=== PATIENT | male | born 1945 | race Caucasian/White ===

== ENCOUNTER 2023-01-11 22:09 | Emergency (ER) | payer MEDICARE, SELFPAY ==
[2023-01-11] VITALS (12 sets, daily range): BP systolic 136–159; BP diastolic 61–80; PULSE 60–87; RESP 18–20; TEMP 36.9; O2SAT 93–100
--- NOTE | ~2023-01-11 | XR_ITS ---
Portable chest x-ray Comparison: 06/26/2017 Clinical History: Syncope Findings: There is probable COPD and/or other chronic interstitial disease. There is mild focal hazi ness the right lung base. Cardiomediastinal silhouette is stable. Bones and soft tissues are unremar kable. Impression: Probable COPD and/or other chronic interstitial disease. Focal haziness right lung base, nonspecific. Consider focal pneumonia. Reviewed, dictated and finalized at location M. Impression: Probable COPD and/or other chronic interstitial disease. Focal haziness right lung base, nonspecific. Consider focal pneumonia.
--- NOTE | ~2023-01-11 | CT_ITS ---
CT head without contrast Indication: Head injury Technique: Serial scans were obtained through the brain without the administration of contrast. Dose reduction technique was used on this scan by utilizing automated exposure control and iterative recon struction technique. The dose-length product (DLP) was 681.00 mGy-cm. Findings: There is no evidence of intracranial hemorrhage or acute infarct. There is a probable 1 cm meningioma along the right side of the superior falx cerebri.. The ventricles and subarachnoid space s are dilated, consistent with mild atrophy. There is hypodensity in the superior right cerebral rubén sphere, suggestive of vasogenic edema. There is no evidence of edema, mass effect or midline shift. The visualized paranasal sinuses and mastoid air cells are clear. Impression: 1 cm suspected meningioma along the superior right side of the falx cerebri. Associated presumed vasogenic edema in the superior right cerebral hemisphere. Pre and postcontrast M R should be considered to better exclude any other underlying mass lesion in this region. Reviewed, dictated and finalized at location M. Impression: 1 cm suspected meningioma along the superior right side of the falx cerebri. Associated presumed vasogenic edema in the superior right cerebral hemisphere. Pre and postcontrast MR should be considered to better exclude any other underl damien mass lesion in this region.
--- NOTE | ~2023-01-11 | CT_ITS ---
Noncontrast CT scan of the cervical spine Technique: Multiple contiguous axial [address] images of the cervical spine were obtained and rec onstructed in 2D sagittal and coronal planes on the acquisition scanner. Dose reduction technique was used on this scan by utilizing automated exposure control, adjustment of the mA and/or kV according to patient size. Clinical History: Pain Findings: No acute fracture identified. Minimal grade 1 anterolisthesis of C5 over C6 noted. There ar e scattered mild degenerative disc changes in the cervical spine. There is advanced left facet arthro arianne at C3-C4, with left neural foraminal narrowing at this level. There is severe left facet arthro arianne at C4-C5, with left neural foraminal narrowing at this level. There is severe left neural michael inal narrowing at C5-C6, with left neural foraminal narrowing at this level. No definite spinal canal stenosis. No prevertebral soft tissue swelling. Impression: No fracture. Minimal grade 1 anterolisthesis of C5 over C6. Degenerative spondylitic changes, as above. Reviewed, dictated and finalized at [facility]. Impression: No fracture. Minimal grade 1 anterolisthesis of C5 over C6. Degenerative spondylitic changes, as above.
--- NOTE | 2023-01-11 22:27 | ECG_ITS ---
Measurements Intervals [place] Rate: 63 P: 63 MN: 177 QRS: 55 QRSD: 116 T: 48 QT: 430 QTc: 443 Interpretive Statements SINUS RHYTHM POSSIBLE LATERAL MYOCARDIAL INFARCTION , PROBABLY OLD INFERIOR MYOCARDIAL INFARCTION , PROBABLY OLD ABNORMAL ECG NO PREVIOUS ECG AVAILABLE FOR COMPARISON Electronically Signed On 01-12-2023 16:47:29 CDT by Jonny Palacios M.D.
--- NOTE | 2023-01-11 22:41 | ED.FALL ---
HPI - Fall General Chief Complaint: Fall Stated Complaint: Fall History of Present Illness HPI Narrative: This is a 77-year-old male with past medical history of COPD, seizure disorder who is brought to the emergency department by EMS after a fall. The patient states he was in his usual state of health, when he fell and lost consciousness. He denies preceding symptoms including chest pain, palpitations or shortness of breath. He complains of some shortness of breath since the fall. He states he is fallen like this before. He states he struck the left side of his head and complains of mild pain. Related Data Home Medications Medication Instructions Recorded Confirmed aspirin 81 mg tablet,delayed 81 mg PO DAILY 01/30/20 07/28/22 release (Aspir-) metoprolol succinate 50 mg 50 mg PO DAILY 01/30/20 07/28/22 tablet,extended release 24 hr temazepam 15 mg capsule 30 mg PO ONCE 01/30/20 01/11/23 fluticasone fur. 100 mcg-umeclid 1 inh inhalation DAILY 01/11/23 62.5 mcg-vilant 25 mcg inhalat.powder (Trelegy Ellipta) levetiracetam 1,000 mg tablet 1,000 mg PO BID 01/11/23 Allergies Allergy/AdvReac Type Severity Reaction Status Date / Time No Known Drug Allergies Allergy Unknown Unknown Verified 01/11/23 22:23 Review of Systems Review of Systems: CONSTITUTIONAL: Denies fever, chills, or sweats. EYES: Denies visual changes, redness, or discharge. ENT: Denies rhinorrhea, congestion, sore throat, or otalgia. CARDIOVASCULAR: Denies chest pain, palpitations, or edema. RESPIRATORY: Chronic shortness of breath, chronic cough somewhat worse than usual GASTROINTESTINAL: Denies abdominal pain, nausea, vomiting, or diarrhea. GENITOURINARY: Denies dysuria or hematuria. SKIN: Denies rash or itching. MUSCULOSKELETAL: Denies back pain, joint pain, or myalgia. NEUROLOGIC: Mild headache, loss of consciousness denies numbness, dizziness, or weakness. PSYCHIATRIC: Denies anxiety or depression. [facility] Past Medical History Medical History Cancer of lung Chronic respiratory failure COPD (chronic obstructive pulmonary disease) Dependence on continuous supplemental oxygen Metastasis to brain Myocardial infarction Shortness of Breath Family History Family History Father , age 73 History of throat cancer Myocardial infarction Mother Hypertension Coronary artery disease Mother Hypertension Family history of coronary artery disease Father Acute myocardial infarction, Onset Age: 73 Other Family history of throat cancer Social History Social History Smoking packs per day: 3 Smoking cigarettes per day: 60.0 Years smoked: 50 Smoking pack-years: 150.00 Smoking status: Former smoker Tobacco type: cigarettes Second hand tobacco smoke exposure: Yes Smoking end date: 10/05/06 Alcohol intake: current Drinks per week: 28 Exam Narrative: GENERAL: Well-developed, well-nourished, and in no acute distress. HEAD: Normocephalic, an approximate 2 cm skin tear with underlying hematomas noted over the left anglican EYES: PERRLA and EOMI. ENT: Nares clear, no rhinorrhea or epistaxis. Mucous membranes moist. Oropharynx without tonsillar hypertrophy exudate or other lesions. NECK: Supple. No adenopathy or masses. No carotid bruits or JVD. No midline spine tenderness to palpation, no step-off or crepitus CHEST: Rales noted in the right posterior inferior lung field. Otherwise clear to auscultation bilaterally.. No respiratory distress. No wheezes or rhonchi HEART: Regular rate and rhythm. No murmur heard. Normal peripheral pulses. ABDOMEN: Soft, nontender, nondistended, normal active bowel sounds. BACK: No midline spine tenderness to palpation, no step-off or crepitus EXTREMITIES: The left foreleg in a brace. Normal range of mot
[2023-01-11] MEDS: TETANUS,DIPHTHERIA,AC PERTUSSIS ADULT 0.5 ML (ADACEL) IM (22:53)
[2023-01-11 23:07] LABS: Basophils Absolute Auto 0.02 K/mm3 (0.00-0.10); Basophils Percent Auto 0.1 % (0.0-1.0); Eosinophils Absolute Auto 0.05 K/mm3 (0.02-0.50); Eosinophils Percent Auto 0.4 % (1.0-6.0); Hematocrit 33.2 % (37.0-46.0); Hemoglobin 10.9 g/dL (12.4-15.3); Immature Granulocyte Absolute 0.07 K/mm3 (0.00-0.00); Immature Granulocyte Percent A 0.5 % (0.0-0.0); Lymphocytes Percent Auto 9.3 % (18.0-42.0); Mean Corpuscular HGB Conc 32.8 g/dL (32.0-36.0); Mean Corpuscular Hemoglobin 30.6 pg (27.0-31.0); Mean Corpuscular Volume 93.3 fL (78.0-102.0); Mean Platelet Volume 9.7 fl (8.7-11.0); Monocytes Absolute Auto 0.72 K/mm3 (0.10-0.90); Monocytes Percent Auto 5.1 % (2.0-11.0); Neutrophils Absolute Auto 11.9 K/mm3 (1.7-7.2); Neutrophils Percent Auto 84.6 % (50.0-70.0); Platelet Count Result 403 K/mm3 (150-420); Red Blood Count 3.56 M/mm3 (4.70-6.10); Red Cell Distribution Width 13.2 % (11.6-14.4)
[2023-01-11 23:18] LABS: Prothrombin Time 10.8 Seconds (9.50-12.10)
[2023-01-11 23:24] LABS: Alanine Aminotransferase 25 U/L (16-63); Albumin Level 3.2 g/dL (3.4-5.0); Alkaline Phosphatase 83 U/L (46-116); Anion Gap 5 mmol/L (8-16); Aspartate Amino Transferase 19 U/L (15-37); Bilirubin,Total 0.3 mg/dL (0.00-1.00); Blood Urea Nitrogen 10 mg/dL (7-18); Carbon Dioxide 34 mmol/L (21-32); Chloride 99 mmol/L (98-108); Estimated CRCL calculation 65 ml/min; Estimated Glomerular Filt Rate > 60; Glucose 88 mg/dL (70-99); Osmolality Calculated 284 mOsm/kg (285-295); Potassium 3.7 mmol/L (3.5-5.1); Sodium 138 mmol/L (136-145); Total Protein 7.1 g/dL (6.4-8.2)
[2023-01-11 23:28] LABS: Creatine Kinase 36 U/L (39-308)
--- NOTE | 2023-01-11 23:30 | PC.NURSE ---
Dr Bravo spoke c pt and his daughter about POC and need for transfer to [facility], Pt agreeable to transfer.
[2023-01-11] MEDS: AZITHROMYCIN 250 MG TABLET 500 MG PO (23:50)
[2023-01-12 00:03] VITALS: BP 175/68; PULSE 61; O2SAT 100
[2023-01-12 00:17] VITALS: BP 160/71; PULSE 60; RESP 18; O2SAT 100
[2023-01-12 00:31] VITALS: BP 154/70; PULSE 58; O2SAT 100
[2023-01-12 01:01] VITALS: BP 168/67; PULSE 66; RESP 18; O2SAT 95
[2023-01-12 01:30] VITALS: PULSE 63; O2SAT 100
--- NOTE | 2023-01-12 01:42 | PC.NURSE ---
Pt resting, awaiting call back for bed assignment at [facility]. VSS, Monitor continues to show SR, call khoury at pt side.
[2023-01-12 02:10] VITALS: BP 133/51; PULSE 63; RESP 20; TEMP 36.6; O2SAT 98
[2023-01-12 02:15] LABS: Appearance Urine Clear (Clear); Bilirubin Urine Negative (Negative); Blood Urine Negative (Negative); Color Urine Light Yellow (Yellow); Glucose Urine UA Negative (Negative); Ketones Urine Negative (Negative); Leukocyte Esterase Ur Negative LEU/UL (Negative); Nitrate Urine Negative (Negative); Protein Urine Negative (Negative); Urobilinogen Urine 0.2 mg/dL (0.2-1.0); pH Urine 6.5 (5.0-8.0)
[2023-01-12 02:23] LABS: Troponin I 315.6 ng/L (0.00-60.4)
[2023-01-12 02:24] LABS: Add Urine Microscopic? NO
--- NOTE | 2023-01-12 02:35 | PC.NURSE ---
[facility] here for pt transfer, report given, pt moved to EMS cot s difficulty.
== END 2023-01-12 02:42 | disposition short-term general hospital (02) ==
PROVIDERS: Emergency Provider Preventive Medicine Aerospace Medicine; PCP Family Medicine
DX: S01.81XA Laceration without foreign body of other part of head, initial encounter (principal); R55 Syncope and collapse; J18.9 Pneumonia, unspecified organism; R79.89 Other specified abnormal findings of blood chemistry; R06.02 Shortness of breath; J44.9 Chronic obstructive pulmonary disease, unspecified; I25.2 Old myocardial infarction; Z99.81 Dependence on supplemental oxygen; Z87.891 Personal history of nicotine dependence; Z85.118 Personal history of other malignant neoplasm of bronchus and lung; Z23 Encounter for immunization; W19.XXXA Unspecified fall, initial encounter
CPT/HCPCS: 36415; 70450; 71045; 72125; 80053; 81003; 82550; 83735; 84484; 85025; 85610; 90471; 90715; 93005; 96365; 99285; A9270; J0696

== ENCOUNTER 2023-01-12 04:51 | Inpatient (IN) | payer MEDICARE, SELFPAY ==
[2023-01-12] VITALS (18 sets, daily range): BP systolic 149–180; BP diastolic 62–102; PULSE 56–131; RESP 18–28; TEMP 36.3–37; O2SAT 98–100; BMI 18.6
--- NOTE | 2023-01-12 | ECHO_ITS ---
Patient Info Name: Jabier Chisholm Age: 77 years : 1945 Gender: Male Ht: 69 in Wt: 126 lbs BSA: 1.66 m2 HR: 73 bpm BP: 178 / 102 mmHg Heart Rhythm: Sinus Rhythm Technical Quality: Fair Exam Date: 01/12/2023 10:27 AM Exam Location: [facility] Pulmonary Patient Status: Inpatient Admit Date: 01/12/2023 Staff Ordering Physician: Lesa Edwards MD Hand Shoes Sewer: Elayne Cline RDCS Attending Provider: Lesa Edwards MD Referring Physician: Jerry PORTILLO; Exam Type: CA echo doppler color flow Study Info Indications - chf Complete two-dimensional, color flow and Doppler transthoracic echocardiogram is performed. Summary 1. Complete two-dimensional, color flow and Doppler transthoracic echocardiogram is performed. 2. Left ventricular chamber dimension is normal. 3. Left ventricular systolic function is normal, estimated at 50-55%. 4. There is no increased left ventricular wall thickness. 5. The left ventricular diastolic function is grade I diastolic dysfunction. 6. There is moderate to severe aortic valve stenosis with a peak velocity of 352 cm/s, mean gradient of 21 mmHg, and aortic valve area of 0.9 cm2. 7. There is mild tricuspid valve regurgitation. 8. Mild pulmonary hypertension, estimated pulmonary arterial systolic pressure is 35 mmHg. Left Ventricle Left ventricular chamber dimension is normal. Left ventricular systolic function is normal, estimated at 50-55%. There is no increased left ventricular wall thickness. The left ventricular diastolic function is grade I diastolic dysfunction. Right Ventricle Right ventricular chamber dimension is normal. Right ventricular systolic function is normal. Left Atria Left atrial chamber dimension is normal. Right Atria Right atrial chamber dimension is normal. Aortic Valve The aortic valve is not well visualized. There is moderate to severe aortic valve stenosis with a peak velocity of 352 cm/s, mean gradient of 21 mmHg, and aortic valve area of 0.9 cm2. There is mild aortic valve regurgitation. Pulmonic Valve The pulmonic valve is not well visualized. Mitral Valve The mitral valve has thickened leaflets. There is trace mitral valve regurgitation. The mitral valve annulus is mildly calcified. Tricuspid Valve The tricuspid valve leaflets are normal. There is mild tricuspid valve regurgitation. Mild pulmonary hypertension, estimated pulmonary arterial systolic pressure is 35 mmHg. Pericardium/Pleural The pericardium appears normal. There is small pericardial effusion. Inferior Vena Cava Normal inferior vena cava with >50% collapse upon inspiration consistent with elevated right atrial pressure, 5 mmHg. Aorta The aortic root size at the sinus of Valsalva is normal. There is moderate-severe aortic atherosclerosis. Left Ventricular Outflow Tract Name Value Normal LVOT 2D LVOT Diameter 2.0 cm LVOT Doppler LVOT Peak Gradient 3 mmHg LVOT Mean Gradient 1 mmHg LVOT VTI 19 cm LVOT VTI/AV VTI Ratio 0.3
--- NOTE | ~2023-01-12 | US_ITS ---
EXAMINATION: US venous doppler [facility] DATE: 01/14/2023 22:09 INDICATION: new onset AFib, hx of cancer . TECHNIQUE: Grayscale images without and with compression and Doppler images of the bilateral lower ex tremity veins were obtained. COMPARISON: None FINDINGS: The right common femoral vein, profunda (deep) femoral vein, femoral vein, popliteal vein, peroneal v ein, posterior tibial veins, gastrocnemius vein, and greater saphenous vein are patent. The left common femoral vein, profunda (deep) femoral vein, femoral vein, popliteal vein, peroneal v ein, posterior tibial veins, gastrocnemius vein, and greater saphenous vein are patent. IMPRESSION: 1. Patent bilateral lower extremity veins. No evidence of deep venous thrombosis. Reviewed, dictated and finalized at location K. IMPRESSION: 1. Patent bilateral lower extremity veins. No evidence of deep venous thrombos is.
--- NOTE | ~2023-01-12 | XR_ITS ---
XR shoulder LT min 2V 01/12/2023 14:43 Indication: Left shoulder pain Procedure: 2 views left shoulder Comparison: No prior studies for comparison. Findings: There is moderate polyarticular osteoarthritis. There is loose body adjacent to the acromio clavicular joint. No significant soft tissue abnormality. No foreign body. Impression: 1: Moderate polyarticular osteoarthritis. Reviewed, dictated and finalized at location B. Impression: 1: Moderate polyarticular osteoarthritis.
--- NOTE | ~2023-01-12 | CT_ITS ---
Clinical Indication: Atrial fibrillation, history of lung cancer CT Scan of the Chest with Contrast: Technique: Contiguous sections were acquired throughout the chest after intravenous administration of 100 cc of Omnipaque 350. Dose reduction technique was used on this scan by utilizing automated expos ure control and iterative reconstruction technique. The dose-length product (DLP) was 203.60 mGy-cm. COMPARISON: 04/26/2019 Findings: There is no evidence of any significant mediastinal, hilar or axillary lymphadenopathy. There is no f illing defect in the pulmonary arterial tree to suggest pulmonary embolus. There is no evidence of ao rtic dissection or aneurysm. There are atherosclerotic calcifications of the aorta. Coronary artery c alcifications are present. Small right pleural effusion present. No left pleural effusion. No pericardial effusion. There is mild to moderate emphysema. There is mild right basilar atelectatic change. There is chronic atelectasis and/or scarring at the left lung base, similar to prior exam.. Images through the upper abdomen reveal no abnormalities. Impression: No evidence of pulmonary embolus, aortic dissection, or aortic aneurysm. Mild to moderate emphysema. Small right pleural effusion with mild right basilar atelectatic change. Chronic atelectasis and/or postradiation change or scarring at the left lung base, essentially unchan ged since 2019. Reviewed, dictated and finalized at [facility]. Impression: No evidence of pulmonary embolus, aortic dissection, or aortic aneurysm. Mild to moderate emphysema. Small right pleural effusion with mild right basilar atelectatic change. Chronic atelectasis and/or postradiation change or scarring at the left lung ba se, essentially unchanged since 2019.
--- NOTE | ~2023-01-12 | MR_ITS ---
EXAMINATION: MR brain/brain stem wo/w con DATE: 01/12/2023 14:40 INDICATION: Brain mass. TECHNIQUE: Magnetic resonance imaging (MRI) of the brain and brainstem was performed without and with 10 mL MultiHance intravenous contrast. COMPARISON: Head CT 01/11/2023, brain MRI 04/26/2019 FINDINGS: There is a 10 mm enhancing mass in medial right parietal lobe containing foci of low signal on T2*-weighted imaging that may be calcifications and/or blood products. There is increased T2-weig hted signal intensity in the surrounding white matter. There is an old infarct involving the right ba manish ganglia. There are scattered areas of nonspecific increased T2-weighted signal intensity in the c erebral white matter and tyler. There is no acute ischemic infarct. The ventricles are normal in size. The paranasal sinuses are clear. The orbits are normal. There are bilateral mastoid effusions. IMPRESSION: 1. 10 mm enhancing mass in medial right parietal lobe, stable from 04/26/2019, consistent with metasta tic disease. Increased T2-weighted signal intensity in the surrounding white matter is likely seconda ry to vasogenic edema and/or changes of radiation therapy. 2. Old infarct in the right basal ganglia. 3. Stable moderate nonspecific cerebral white matter disease and pontine disease, which likely repres ents chronic small vessel ischemic disease. Reviewed, dictated and finalized at location A. IMPRESSION: 1. 10 mm enhancing mass in medial right parietal lobe, stable from 04/26/2019, c onsistent with metastatic disease. Increased T2-weighted signal intensity in th e surrounding white matter is likely secondary to vasogenic edema and/or change s of radiation therapy. 2. Old infarct in the right basal ganglia. 3. Stable moderate nonspecific cerebral white matter disease and pontine diseas e, which likely represents chronic small vessel ischemic disease.
--- NOTE | 2023-01-12 03:58 | ADMGEN ---
This patient, Jabier Chisholm Sr., was admitted to IMU Room 212-01. Patient/family oriented to hospital policies and general routines including ID bracelet, bed and alarms, visiting hours, pain management, procedures, bathroom and other care routines, personal items, smoking policy, room service/diet, and visiting hours. Information on how to activate the Rapid Response Team has been discussed. Patient/Family are encouraged to report perceived risks to care and to ask questions if they do not understand what they are told or what they should do.
[2023-01-12 05:32] LABS: INR 1.1; Prothrombin Time 13.8 Seconds (11.1-14.7)
[2023-01-12 05:33] LABS: Partial Thromboplastin Time 30.9 SECONDS (22.3-36.8)
[2023-01-12 05:45] LABS: Phosphorus 3.6 mg/dL (2.5-4.5)
[2023-01-12 05:49] LABS: Troponin I 0.227 ng/mL (0.000-0.034)
[2023-01-12 07:54] LABS: Troponin I 0.228 ng/mL (0.000-0.034)
[2023-01-12] MEDS: levETIRAcetam 500 MG TABLET 1000 MG PO ×2 (08:58→21:23)
[2023-01-12] MEDS: ENOXAPARIN 40 MG/0.4 ML SYRINGE SUB-Q (08:59)
[2023-01-12] MEDS: FLUTICASONE/UMECLIDIN/VILANTER 100-62.5-25 MCG ELLIPTA 1 PUFF INHALATION (09:28)
--- NOTE | 2023-01-12 09:36 | PM.CNCAR ---
Assessment and Plan Assessment and plan (1) Elevated troponin: Code(s): R77.8 - Other specified abnormalities of plasma proteins Status: Acute Plan This is a 77-year-old man with modest flat elevation of troponin without any other clinical evidence of an acute coronary syndrome. Not clear as to why the troponin levels have been sampled in this setting. In any event he denies any previous cardiac history. He is obviously a considerably ill gentleman with end-stage COPD which certainly could explain elevation of troponin to a modest degree. He also has the above described history of significant malignancy and because of all this is DNR. In this setting I do not believe there is good reason to keep him hospitalized here at [facility] or anywhere else given his comorbidities and DNR status. Initiating ischemia workup here is not necessary in this setting. One would question the safety or reasonable miss of this patient continuing to live alone if he is falling frequently. I did not get into a conversation with this as part of his cardiology evaluation. Merritt Mckeon MD [facility] History of Present Illness History of Present Illness Consult date/time: 01/12/23 09:36 Reason For Visit: elevated troponin,acute chf Narrative: This is a 77-year-old man I am seeing this morning at the request of the hospitalist because of elevation of his troponin level. The patient is unknown to me prior to this consultation and he says he is not known to have any cardiac problems prior to this. He has a rather ill gentleman with chronic end-stage COPD as well as a prior history of lung cancer. The details of this are unknown to me he received his care at [facility] in [place]. He was brought to the emergency room yesterday up in [place] because of an episode of apparent loss of consciousness and falling in his home. The patient states that he does fall with some regularity usually it is because he trips on things. Earlier in the week he fell because he tripped on his cord for the home oxygen that he uses. He yesterday apparently had a fall that he cannot recall. A neighbor who checks on him found him on the floor in his residence apparently not responsive and he was brought to the emergency department for further evaluation. He says the next thing he remembers is waking up in the emergency room. According to the notes his cardiac rhythm and hemodynamically is vital signs were stable and unremarkable. His electrocardiogram does show some small inferior Q-waves and his troponin levels were found to be elevated. Here at [facility] they are 0.2 and flat. There is no ST segment deviation to suggest an acute injury. He does not remember having any chest pain prior to this yesterday and he has not had any chest pain at this time. The patient is would like to be discharged back to home if possible. His principal health problems are severe chronic lung disease there are notes from his mobile sales technician here in this chart which indicate he has end-stage lung disease and is on home oxygen 5 liters/minute to maintain good saturation. He has a history of smoking 150 pack years prior to this. 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 He states all of these were treated with radiation at [facility] in [place]. He never had any surgical procedures to treat his cancer. He has not seen an oncologist there for follow-up in some time. His chest x-ray does not show any significant masses his CT of his head does not show any lesion suspicious for cancer he does have a small meningioma that is described. There is no mass effect the certainly no hemorrhage. Because of his troponin elevation we have been asked to see him in consultation. His orders presumably because of his malignancy I include DNR status. His cardiac rhythm since being transferred here at [facility] yesterday and admitt
[2023-01-12] MEDS: predniSONE 5 MG TABLET PO (13:04)
--- NOTE | 2023-01-12 14:31 | PC.NURSE ---
1411- to XRAY dept and MRI for procedure via bed accompanied by staff
--- NOTE | 2023-01-12 15:05 | PC.NURSE ---
returned to room MRI and left shoulder x-ray completed
--- NOTE | 2023-01-12 15:11 | PM.IMHP ---
H&P: HPI History of Present Illness Date/Time: 01/12/23 15:11 Chief Complaint: fall Narrative: this is a [age]-year-old male with past medical history of COPD, seizure disorder history of lung cancer metastatic to the brain treated chronic respiratory failure on home oxygen lives alone presents with fall and states she does not know how he was on the floor and his resume that he loss consciousness. He denies any preceding symptoms including chest pain palpitation or shortness of breath. He has chronic shortness of breath. He has had falls like this in the past. He was seen in the ER and further workup revealed CT head with no acute intracranial finding or fracture. There is chronic ischemic change in the right frontoparietal white matter CT cervical spine was negative for any fracture abnormality. Troponin came back elevated WBC count was mildly elevated at 14 a he was transferred for cardiac evaluation. Cardiology has evaluated this patient prior to my evaluation. Cardiac troponin has been flat since the admission. He is wanting to go home with no further testing 1 and. This was discussed with the daughter over the phone and and my information findings and evaluation. Review of Systems Review of Systems: - CONSTITUTIONAL: Denies weight loss, fever and chills. - HEENT: Denies changes in vision and hearing - RESPIRATORY: Reports chronic SOB and cough. - CV: Denies palpitations and CP. - GI: Denies abdominal pain, nausea, vomiting and diarrhea. - : Denies dysuria and urinary frequency. - MSK: Denies myalgia and joint pain. - SKIN: Denies rash and pruritus. - NEUROLOGICAL: Denies headache. reports fall and syncopal episode - PSYCHIATRIC: Denies recent changes in mood. Denies anxiety and depression. [facility] Past Medical History Medical History Cancer of lung Chronic respiratory failure COPD (chronic obstructive pulmonary disease) Dependence on continuous supplemental oxygen Metastasis to brain Myocardial infarction Shortness of Breath Family History Family History Father , age 73 History of throat cancer Myocardial infarction Mother Hypertension Coronary artery disease Mother Hypertension Family history of coronary artery disease Father Acute myocardial infarction, Onset Age: 73 Other Family history of throat cancer Social History Social History Smoking packs per day: 3 Smoking cigarettes per day: 60.0 Years smoked: 50 Smoking pack-years: 150.00 Smoking status: Former smoker Tobacco type: cigarettes Second hand tobacco smoke exposure: Yes Smoking end date: 10/05/06 Alcohol intake: current Drinks per week: 28 Substance use: never Last use: 4 beers per day Lack of Transportation: No Lack of Food: Never True Current Housing: I Have Housing Concerned About Future Housing: No Difficulty Paying Gas/Electric Bills: No Difficulty Paying for Meds: No Currently Unemployed: No Education: Decline to Answer Difficulty w/ Childcare or Family Care: No Spiritual care concerns: No Meds Home Medications and Allergies Home Medications Medication Instructions Recorded Confirmed Type temazepam 15 mg capsule 30 mg PO HS 01/30/20 01/12/23 History albuterol sulfate 90 mcg/actuation 1 - 2 puff inhalation Q4-6H PRN 07/28/22 01/12/23 Rx aerosol inhaler (ProAir HFA) shortness of breath or wheezing 1 month #8 grams fluticasone fur. 100 mcg-umeclid 1 inh inhalation DAILY 01/11/23 01/12/23 History 62.5 mcg-vilant 25 mcg inhalat.powder (Trelegy Ellipta) levetiracetam 1,000 mg tablet 1,000 mg PO BID 01/11/23 01/12/23 History prednisone 5 mg tablet 5 mg PO DAILY 01/12/23 01/12/23 History Allergies Allergy/AdvReac Type Severity Reaction Status Date /
[2023-01-12] MEDS: DOCUSATE SODIUM 100 MG CAPSULE PO (16:48)
[2023-01-12] MEDS: ACETAMINOPHEN 325 MG TABLET 650 MG PO (16:49)
--- NOTE | 2023-01-12 17:08 | ECG_ITS ---
Measurements Intervals [place] Rate: 129 P: 76 PA: 165 QRS: 69 QRSD: 112 T: 72 QT: 304 QTc: 445 Interpretive Statements SINUS TACHYCARDIA BASELINE ARTIFACT PROBABLE INFERIOR MYOCARDIAL INFARCTION ], OF INDETERMINATE AGE ST DEPRESSION, CONSIDER SUBENDOCARDIAL INJURY ABNORMAL ECG COMPARED TO ECG 01/11/2023 23:03:18 SINUS TACHYCARDIA NOW PRESENT AND ST CHANGES MORE PROMINENT Electronically Signed On 01-13-2023 15:57:14 CDT by Jonny Palacios M.D.
[2023-01-12] MEDS: METOPROLOL TARTRATE 25 MG TABLET PO (18:03)
[2023-01-12] MEDS: HYDROcodone/acetaminophen (*CRX) 5-325 MG TABLET 1 TAB PO (18:03)
[2023-01-12] MEDS: TEMAZEPAM (*CRX) 15 MG CAPSULE 30 MG PO (21:23)
[2023-01-13] VITALS (30 sets, daily range): BP systolic 92–153; BP diastolic 52–67; PULSE 57–90; RESP 16–22; TEMP 36.2–36.7; O2SAT 99–100
[2023-01-13] MEDS: LEVALBUTEROL NEB 1.25 MG/3 ML 0.63 MG INHALATION ×4 (02:25→20:20)
[2023-01-13] MEDS: IPRATROPIUM BR 0.02% INH SOLN 0.5 MG/2.5 ML VIAL INHALATION ×4 (02:25→20:47)
[2023-01-13 04:43] LABS: Basophils Percent Auto 0.1 % (0.2-1.2); Eosinophils Absolute Auto 0.1 K/mm3 (0-0.3); Eosinophils Percent Auto 0.3 % (0-4.4); Hematocrit 35.2 % (42.0-52.0); Hemoglobin 11.2 g/dL (14.0-18.0); Immature Granulocyte Absolute 0.07 K/mm3 (0.00-0.031); Immature Granulocyte Percent A 0.4 % (0-0.5); Lymphocytes Absolute Auto 1.47 K/mm3 (0.9-3.2); Lymphocytes Percent Auto 7.5 % (18.3-44.2); Mean Corpuscular HGB Conc 31.8 g/dl (32-36); Mean Corpuscular Hemoglobin 30.7 pg (26-34); Mean Corpuscular Volume 96.4 fl (80-100); Mean Platelet Volume 10.1 fl (7.4-10.4); Monocytes Absolute Auto 0.9 K/mm3 (0.1-0.6); Monocytes Percent Auto 4.8 % (2.6-8.5); Neutrophils Absolute Auto 16.9 K/mm3 (1.3-6.7); Neutrophils Percent Auto 86.9 % (45.5-73.1); Platelet Count Result 376 k/mm3 (150-375); Red Blood Count 3.65 M/mm3 (4.6-6.20); Red Cell Distribution Width 13.5 % (11.5-14.5); White Blood Count 19.5 K/mm3 (4.5-10.0)
[2023-01-13 04:51] LABS: Anion Gap 6 mmol/L (8-16); Blood Urea Nitrogen 12 mg/dL (9-20); Carbon Dioxide 30 mmol/L (22-30); Chloride 98 mmol/L (98-107); Estimated CRCL calculation 77 ml/min; Estimated Glomerular Filt Rate > 60; Glucose 100 mg/dL (65-110); Magnesium 2.1 mg/dL (1.6-2.3); Sodium 134 mmol/L (137-145)
--- NOTE | 2023-01-13 06:56 | P.CDI_ITS ---
CDI Query Clarified Diagnosis Clarified Diagnosis: BMI 18.6 Nutritional Diagnostic Statement Severe Protein Calorie Malnutrition related to chronic cancer as evidence by weight loss -23%/ 1 year; intake < 75% needs > 1 month ; severe muscle wasting a nd fat loss Please refer to Comprehensive Nutrition Assessment for more information. Please clarify severity of protein calorie malnutrition if known: * Mild * Moderate * Severe * Other/ Unspecified <Misty Granados RN - Last Filed: 01/13/23 07:03> Provider Comments Severe protein calorie malnutrition <Dwayne Rodríguez MD - Last Filed: 01/13/23 15:39>
[2023-01-13] MEDS: FLUTICASONE/UMECLIDIN/VILANTER 100-62.5-25 MCG ELLIPTA 1 PUFF INHALATION (08:35)
[2023-01-13] MEDS: levETIRAcetam 500 MG TABLET 1000 MG PO (08:53)
[2023-01-13] MEDS: METOPROLOL TARTRATE 25 MG TABLET PO (08:54)
[2023-01-13] MEDS: predniSONE 5 MG TABLET PO (08:54)
[2023-01-13] MEDS: ENOXAPARIN 40 MG/0.4 ML SYRINGE SUB-Q (08:54)
[2023-01-13] MEDS: DOCUSATE SODIUM 100 MG CAPSULE PO ×2 (08:54→16:54)
[2023-01-13] MEDS: HYDROcodone/acetaminophen (*CRX) 5-325 MG TABLET 1 TAB PO (08:56)
--- NOTE | 2023-01-13 10:25 | WPDNEURCNPN ---
Assessment and Plan Assessment and plan (1) Metastatic cancer to brain: Code(s): C79.31 - Secondary malignant neoplasm of brain Status: Acute (2) Seizure: Code(s): R56.9 - Unspecified convulsions Status: Acute (3) Cancer of lung: Qualifiers: Laterality: right Lung location: hilum of lung Qualified Code(s): C34.01 - Malignant neoplasm of right main bronchus Code(s): C34.90 - Malignant neoplasm of unspecified part of unspecified bronchus or lung Status: Acute (4) COPD (chronic obstructive pulmonary disease): Qualifiers: COPD type: unspecified COPD Qualified Code(s): J44.9 - Chronic obstructive pulmonary disease, unspecified Code(s): J44.9 - Chronic obstructive pulmonary disease, unspecified Status: Acute Plan Jabier Chisholm Sr. is a 77 year old male with a history of metastatic lung cancer (brain mets), COPD, seizures, presenting due to fall. Etiology is unclear as fall was unwitnessed, but patient did have loss of consciousness. Concern for possible breakthrough seizure. MRI brain showed known metastatic disease, which is stable from prior imaging in 2019. - Increase Keppra to 1500mg BID - No driving until seizure free for 6 months Consult date: 01/13/23 Reason for consult: Fall, abnormal imaging findings HPI: Jabier Chisholm Sr. is a 77 year old male with a history of metastatic lung cancer (brain mets), COPD, seizure, presenting due to fall. Patient lives alone and reports that he did not know how he ended up on the floor. He did lose consciousness, but does not remember the preceding events. Patient does have a history of falls, but typically will trip over something which results in him falling. When evaluated in [place] ED, his CT head did not show any acute abnormalities but there was a mass noted in the right frontal region. His labs were significant for mild elevation of troponin, for which Cardiology was consulted. Patient is followed at [facility] for oncology care. The MRI brain done during this admission showed 10mm enhancing mass in the medial R parietal lobe, stable from April 2019, consistent with metastatic disease with surrounding white matter changes, as well as old infarct in the right basal ganglia. He takes prednisone 5mg daily, presumable for vasogenic edema. For his history of seizures, patient is currently on Keppra 1000mg BID. Patient reports good compliance with Keppra. He has only had one seizure in his lifetime, that happened years ago. He described it as left hemibody stiffening. Review of Systems Constitutional: Constitutional: Reports no additional constitutional complaints Eyes: Eyes: Reports no additional eye complaints ENT: Reports system reviewed and no additional complaints, except as documented Cardiovascular: Cardiovascular: Reports no additional cardiovascular complaints Respiratory: Respiratory: Reports no additional respiratory complaints Gastrointestinal: Gastrointestinal: Reports no additional gastrointestinal complaints Genitourinary: Genitourinary: Reports no additional male genitourinary complaints Musculoskeletal: Musculoskeletal: Reports no additional musculoskeletal complaints Integumentary/Breasts: Comments: bruising Neurologic: Reports as per HPI Psychiatric: Psychiatric: Reports no additional psychiatric complaints PMFSH Past Medical History Medical History Cancer of lung Chronic respiratory failure COPD (chronic obstructive pulmonary disease) Dependence on continuous supplemental oxygen Metastasis to brain Myocardial infarction Shortness of Breath Family History Family History Father , age 73 History of throat cancer Myocardial infarction Mother Hypertension Coronary artery disease Mother Hypertension Family history of coronary artery disease Father D
--- NOTE | 2023-01-13 13:36 | WPDNEUROLOGY ---
Neurology EEG Report General Information Date of Study: 01/12/23 TEST Routine EEG DIAGNOSIS New onset seizure CONDITION OF RECORDING Awake, drowsy EEG NUMBER [id number] CLINICAL HISTORY Patient has a history of lung cancer with brain metastasis. He was found unresponsive at home yesterday. He has a history of one prior seizure. EEG DESCRIPTION During the awake state with eyes closed the background consists of 8-9 Hz posterior dominant rhythm which attenuates appropriately with eye opening. The recording is continuous. There is a well developed anterior-posterior gradient. No significant asymmetries of background activities are noted. With drowsiness there is waxing and waning of the dominant rhythm with eventual replacement by a mixture of beta, alpha, and theta activity. Patient did not enter stage II sleep. Arousal is unremarkable. There are no epileptiform discharges or seizures during this recording. Hyperventilation and photic stimulation were not performed. IMPRESSION This is a normal routine EEG recorded in awake and drowsy states. There are no electrographic seizures identified, nor are there any epileptiform discharges. Please note that a normal EEG cannot exclude a seizure disorder. Clinical correlation is recommended.
--- NOTE | 2023-01-13 15:32 | PM.IMPN ---
Progress Note: A&P Assessment and Plan (1) Head injury due to trauma: Code(s): S09.90XA - Unspecified injury of head, initial encounter Status: Inactive (2) Elevated troponin: Code(s): R77.8 - Other specified abnormalities of plasma proteins Status: Inactive (3) Syncope: Code(s): R55 - Syncope and collapse Status: Inactive (4) Chronic respiratory failure: Qualifiers: Respiratory failure complication: unspecified whether with hypoxia or hypercapnia Qualified Code(s): J96.10 - Chronic respiratory failure, unspecified whether with hypoxia or hypercapnia Code(s): J96.10 - Chronic respiratory failure, unspecified whether with hypoxia or hypercapnia Status: Acute (5) Dependence on continuous supplemental oxygen: Code(s): Z99.81 - Dependence on supplemental oxygen Status: Acute (6) Cancer of lung: Qualifiers: Laterality: right Lung location: hilum of lung Qualified Code(s): C34.01 - Malignant neoplasm of right main bronchus Code(s): C34.90 - Malignant neoplasm of unspecified part of unspecified bronchus or lung Status: Acute (7) COPD (chronic obstructive pulmonary disease): Qualifiers: COPD type: unspecified COPD Qualified Code(s): J44.9 - Chronic obstructive pulmonary disease, unspecified Code(s): J44.9 - Chronic obstructive pulmonary disease, unspecified Status: Acute Plan recurrent fall Syncopal episode Abnormal CT head with vasogenic edema right cerebral hemisphere. MRI brain revealed 10 mm enhancing mass in the medial right parietal lobe which is stable from April 2019 consistent with metastatic disease with surrounding white matter changes as well as ordered far the right basal ganglia. Neurology consulted. Suggested Keppra increased to 1500 mg b.i.d. EEG with no active seizures Shoulder pain left side x-ray with polyarticular osteoarthritis Elevated troponin: Flat trajectory. No further workup planned by playground equipment erector. Get an echo due to syncopal episode Severe COPD Chronic respiratory failure On home oxygen Pneumonia right lung base with leukocytosis worsening will start ceftriaxone azithromycin also has underlying COPD and/or chronic interstitial lung disease seizure disorder Generalized weakness: PT OT evaluated. Need rehabilitation however patient refuses to go. Patient lives alone by himself DVT prophylaxis : Lovenox Do not resuscitate Subjective Date/time seen: 01/13/23 15:32 Interval history: Feeling better. Work with therapy. Still has some cough which is more chronic. Discussed with neurologist. Review of Systems Review of Systems: All systems reviewed & are unremarkable except as noted in HPI and below Exam Narrative: GENERAL: Thin built, and in no acute distress. on cooperative HEAD: Normocephalic, an approximate 2 cm skin tear with underlying hematomas noted over the left jewish EYES: PERRLA and EOMI. ENT: Nares clear, no rhinorrhea or epistaxis.? NECK: Supple.? CHEST: coarse breath sound.? No respiratory distress. HEART: Regular rate and rhythm.? No murmur heard.? Normal peripheral pulses. ABDOMEN: Soft, nontender, nondistended, normal active bowel sounds. EXTREMITIES: No edema. SKIN: Warm, dry, no rash. NEURO: No focal deficits.? Alert and oriented x3.? PSYCH: Normal mood cooperative Objective Data Vital Signs Vital Signs: Vital Signs - 24 hr 01/12/23 17:06 01/12/23 18:03 01/12/23 16:30 Temperature 98.6 F Pulse Rate 131 H 131 H 131 H Respiratory Rate 24 H Blood Pressure 171/93 H Pulse Oximetry 100 Oxygen Delivery Oxygen Flow Rate 01/12/23 18:29 01/12/23 20:32 01/12/23 20:00 Temperature 98 F Pulse Rate 124 H 102 H Respiratory Rate 18 Blood Pressure 159/62 H Pulse Oximetry 99 99 Oxygen Delivery Nasal Cannula Oxygen Flow Rate 4 01/12/23 22:00 01/13/23 00:26 01/13/23 00:00 Temperature 98.1 F Pulse Rate 9
[2023-01-13] MEDS: TEMAZEPAM (*CRX) 15 MG CAPSULE 30 MG PO (21:19)
[2023-01-13] MEDS: levETIRAcetam 500 MG TABLET 1500 MG PO (21:19)
[2023-01-14] VITALS (30 sets, daily range): BP systolic 86–131; BP diastolic 41–70; PULSE 62–156; RESP 16–24; TEMP 36.3–36.5; O2SAT 93–100
[2023-01-14 04:45] LABS: Basophils Percent Auto 0.1 % (0.2-1.2); Eosinophils Absolute Auto 0.2 K/mm3 (0-0.3); Eosinophils Percent Auto 1.2 % (0-4.4); Hematocrit 32.8 % (42.0-52.0); Hemoglobin 10.6 g/dL (14.0-18.0); Immature Granulocyte Absolute 0.05 K/mm3 (0.00-0.031); Immature Granulocyte Percent A 0.4 % (0-0.5); Lymphocytes Absolute Auto 1.25 K/mm3 (0.9-3.2); Lymphocytes Percent Auto 8.8 % (18.3-44.2); Mean Corpuscular HGB Conc 32.3 g/dl (32-36); Mean Corpuscular Hemoglobin 30.9 pg (26-34); Mean Corpuscular Volume 95.6 fl (80-100); Mean Platelet Volume 9.7 fl (7.4-10.4); Monocytes Absolute Auto 0.9 K/mm3 (0.1-0.6); Monocytes Percent Auto 6.3 % (2.6-8.5); Neutrophils Absolute Auto 11.9 K/mm3 (1.3-6.7); Neutrophils Percent Auto 83.2 % (45.5-73.1); Platelet Count Result 363 k/mm3 (150-375); Red Blood Count 3.43 M/mm3 (4.6-6.20); Red Cell Distribution Width 13.3 % (11.5-14.5); White Blood Count 14.3 K/mm3 (4.5-10.0)
[2023-01-14 04:54] LABS: Alanine Aminotransferase 16 U/L (6-50); Albumin Level 3.5 g/dL (3.5-5.1); Alkaline Phosphatase 69 U/L (38-126); Anion Gap 4 mmol/L (8-16); Aspartate Amino Transferase 19 U/L (17-59); Bilirubin,Total 0.5 mg/dL (0.2-1.3); Blood Urea Nitrogen 12 mg/dL (9-20); Carbon Dioxide 34 mmol/L (22-30); Chloride 96 mmol/L (98-107); Estimated CRCL calculation 79 ml/min; Estimated Glomerular Filt Rate > 60; Glucose 87 mg/dL (65-110); Magnesium 1.9 mg/dL (1.6-2.3); Potassium 3.5 mmol/L (3.4-5.0); Sodium 134 mmol/L (137-145)
[2023-01-14] MEDS: SODIUM CHLOR 3% 15 ML NEB (RESPIRATORY THERAPY) 6 ML INHALATION (05:30)
--- NOTE | 2023-01-14 06:07 | PCRCNOTE ---
Sputum induction med administered, no sputum obtained.
--- NOTE | 2023-01-14 09:29 | ECG_ITS ---
Measurements Intervals [place] Rate: 142 P: MA: 0 QRS: 71 QRSD: 117 T: -35 QT: 261 QTc: 401 Interpretive Statements ATRIAL FIBRILLATION WITH RAPID VENTRICULAR RESPONSE INFERIOR MYOCARDIAL INFARCTION , OF INDETERMINATE AGE [40+ ms Q WAVE AND/OR ST/T ABNORMALITY IN II/aVF] MARKED ST DEPRESSION, CONSIDER SUBENDOCARDIAL INJURY [0.2+ mV ST DEPRESSION] COMPARED TO ECG 01/12/2023 17:19:44 ATRIAL FIBRILLATION NOW PRESENT Electronically Signed On 01-14-2023 18:08:45 CDT by Lindsey Parker M.D.
[2023-01-14] MEDS: METOPROLOL TARTRATE INJ 5 MG/5 ML VIAL (09:50)
[2023-01-14] MEDS: METOPROLOL TARTRATE INJ 5 MG/5 ML VIAL IV PUSH (09:51)
[2023-01-14] MEDS: DOCUSATE SODIUM 100 MG CAPSULE PO (10:24)
[2023-01-14] MEDS: levETIRAcetam 500 MG TABLET 1500 MG PO ×2 (10:24→20:49)
[2023-01-14] MEDS: predniSONE 5 MG TABLET PO (10:25)
[2023-01-14] MEDS: ENOXAPARIN 40 MG/0.4 ML SYRINGE SUB-Q (10:25)
--- NOTE | 2023-01-14 10:52 | PM.IMPN ---
Progress Note: A&P Assessment and Plan (1) Atrial fibrillation with rapid ventricular response: Code(s): I48.91 - Unspecified atrial fibrillation Status: Acute Assessment and Plan: Patient with new onset atrial fibrillation this morning. He had episode of sinus tachycardia 2 days ago and that may have been a flutter. EKG showing diffuse ST depression so consider ischemia induced. Cole 2 Vasc score is 6. Echo a few days ago shows EF of 50-55% with grade 1 diastolic dysfunction and moderate to severe aortic stenosis. Patient is agreeable with anticoagulation. He received Lovenox this morning so will add to this and continue Lovenox in a therapeutic dose. Change to Eliquis or Xarelto depending on when he can afford. Check TSH. Cardiology consult is on board and they were notified of the change. Metoprolol 5 mg IV once was given with good results. Continue to monitor on telemetry in IMU. On re-evaluation patient again tachycardic. Blood pressure is soft so amiodarone 150 mg IV once was given. Fluid bolus added. Check dopplers and CTA chest to exclude VTE. (2) Syncope: Code(s): R55 - Syncope and collapse Status: Inactive Assessment and Plan: Patient had a syncopal episode. Possibly seizure. Abnormal CT head with vasogenic edema right cerebral hemisphere. 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 Neurology following and appreciate their input. EEG with no active seizures. Keppra increased to 1500 mg b.i.d. (3) Seizure: Code(s): R56.9 - Unspecified convulsions Status: Acute Assessment and Plan: As above. Keppra increased. No driving. (4) Pneumonia: Code(s): J18.9 - Pneumonia, unspecified organism Status: Acute Assessment and Plan: CXR showing focal air space disease RLL possibly pneumonia with leukocytosis. He was started on ceftriaxone and azithromycin. Azithro changed to Doxy given interaction with Amio. (5) Head injury due to trauma: Code(s): S09.90XA - Unspecified injury of head, initial encounter Status: Inactive Assessment and Plan: As above. Related to the syncope. Also with shoulder pain but left shoulder x-ray with polyarticular osteoarthritis. He also has generalized weakness. PT OT evaluated. Need rehabilitation however patient refuses to go. Patient lives alone by himself. (6) Elevated troponin: Code(s): R77.8 - Other specified abnormalities of plasma proteins Status: Inactive Assessment and Plan: Elevated troponin to 0.2 with flat trajectory. Related to paroxysmal AFib? Testing as above. 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 (7) Chronic respiratory failure: Qualifiers: Respiratory failure complication: unspecified whether with hypoxia or hypercapnia Qualified Code(s): J96.10 - Chronic respiratory failure, unspecified whether with hypoxia or hypercapnia Code(s): J96.10 - Chronic respiratory failure, unspecified whether with hypoxia or hypercapnia Status: Acute Assessment and Plan: Chronic respiratory failure on home oxygen at 3-4L but patient wears 5L at home for comfort. (8) Cancer of lung: Qualifiers: Laterality: right Lung location: hilum of lung Qualified Code(s): C34.01 - Malignant neoplasm of right main bronchus Code(s): C34.90 - Malignant neoplasm of unspecified part of unspecified bronchus or lung Status: Acute Assessment and Plan: Hx of lung cancer with mets to the brain. (9) COPD (chronic obstructive pulmonary disease): Qualifiers: COPD type: unspecified COPD Qualified Code(s): J44.9 - Chronic obstructive pulmonary disease, unspecified Code(s): J44.9 - Chronic obstructive pulmonary disease, unspecifi
[2023-01-14] MEDS: POTASSIUM CHLORIDE 20 MEQ TABLET 40 MEQ PO (11:52)
[2023-01-14] MEDS: ENOXAPARIN 60 MG/0.6 ML SYRINGE 20 MG SUB-Q (12:10)
--- NOTE | 2023-01-14 12:51 | PCOTNOTE ---
Per RN, Patient not to be seen this afternoon due to Patient's condition.
[2023-01-14] MEDS: LEVALBUTEROL NEB 1.25 MG/3 ML 0.63 MG INHALATION ×2 (13:54→21:08)
[2023-01-14] MEDS: IPRATROPIUM BR 0.02% INH SOLN 0.5 MG/2.5 ML VIAL INHALATION ×2 (13:54→21:08)
[2023-01-14] MEDS: FLUTICASONE/UMECLIDIN/VILANTER 100-62.5-25 MCG ELLIPTA 1 PUFF INHALATION (14:00)
[2023-01-14] MEDS: AMIODARONE 150 MG/D5W 100 ML 150 MG/100 ML BAG 600 MG IV CONT (14:48)
--- NOTE | 2023-01-14 16:11 | PM.PNCARD ---
Progress Note: A&P Assessment and Plan (1) Atrial flutter with rapid ventricular response: Code(s): I48.92 - Unspecified atrial flutter Status: Acute Assessment and Plan: Relatively asymptomatic but new diagnosis atrial flutter with rapid ventricular response 140 beats per minute. Refractory to IV metoprolol and IV amiodarone bolus. We will load orally with 400 mg p.o. t.i.d.. Give dose now. Systemic anticoagulation for block stroke risk reduction. Discussed pathophysiology, management and concern for block stroke risk versus bleeding risk on anticoagulation. Serious concern with regards to his ability to tolerate given falls, seizure and history of noncompliance as he may be at excessive bleeding risk. Nonetheless depending on management strategy preference will attempt rate control as is feasible. This issue greatly complicates management in general. (2) Hypotension: Code(s): I95.9 - Hypotension, unspecified Status: Acute Assessment and Plan: Give IV fluid bolus. Relative hypotension pre dated onset of tachyarrhythmia. Monitor closely. Avoid anti hypertensive medications. Further evaluation per primary service. Do not feel this is primarily related to his atrial flutter, however, this certainly could contribute. He is not a good candidate for sedation but this may be necessary if refractory hypotension persists and or he becomes symptomatic. (3) Elevated troponin: Code(s): R77.8 - Other specified abnormalities of plasma proteins Status: Inactive Assessment and Plan: No further workup at this time as per Dr. Hughes stress evaluation. (4) COPD (chronic obstructive pulmonary disease): Qualifiers: COPD type: unspecified COPD Qualified Code(s): J44.9 - Chronic obstructive pulmonary disease, unspecified Code(s): J44.9 - Chronic obstructive pulmonary disease, unspecified Status: Acute (5) Metastatic cancer to brain: Code(s): C79.31 - Secondary malignant neoplasm of brain Status: Acute (6) Chronic respiratory failure: Qualifiers: Respiratory failure complication: unspecified whether with hypoxia or hypercapnia Qualified Code(s): J96.10 - Chronic respiratory failure, unspecified whether with hypoxia or hypercapnia Code(s): J96.10 - Chronic respiratory failure, unspecified whether with hypoxia or hypercapnia Status: Acute Plan This is a 77-year-old man with modest flat elevation of troponin without any other clinical evidence of an acute coronary syndrome. Not clear as to why the troponin levels have been sampled in this setting. In any event he denies any previous cardiac history. He is obviously a considerably ill gentleman with end-stage COPD which certainly could explain elevation of troponin to a modest degree. He also has the above described history of significant malignancy and because of all this is DNR. In this setting I do not believe there is good reason to keep him hospitalized here at [place] or anywhere else given his comorbidities and DNR status. Initiating ischemia workup here is not necessary in this setting. One would question the safety or reasonable miss of this patient continuing to live alone if he is falling frequently. I did not get into a conversation with this as part of his cardiology evaluation. Merritt Mckeon MD [facility] Subjective Date/time seen: Date of service: 01/14/23 16:11 Follow-up for new onset atrial flutter with rapid ventricular response Patient denies palpitations, chest pain or new shortness of breath. Patient states he is sick of getting stuck with needles. Daughter at bedside. Patient developed atrial flutter with RVR this morning around 930. No improvement with IV metoprolol and patient has been hypotensive with systolic blood pressures in 80s to 100s. IV amiodarone bolus was administered with no improvement heart rate. Review of Systems Review of Systems: Rem
[2023-01-14] MEDS: SODIUM CHLORIDE 0.9% IV 250 ML IV CONT (16:45)
[2023-01-14] MEDS: AMIODARONE HCL 200 MG TABLET 400 MG PO (16:45)
[2023-01-14] MEDS: ENOXAPARIN 60 MG/0.6 ML SYRINGE SUB-Q (20:49)
[2023-01-14] MEDS: TEMAZEPAM (*CRX) 15 MG CAPSULE 30 MG PO (20:54)
[2023-01-15] VITALS (29 sets, daily range): BP systolic 91–126; BP diastolic 60–78; PULSE 76–148; RESP 20–24; TEMP 36–36.8; O2SAT 93–100
[2023-01-15] MEDS: LEVALBUTEROL NEB 1.25 MG/3 ML 0.63 MG INHALATION ×4 (03:09→20:31)
[2023-01-15] MEDS: IPRATROPIUM BR 0.02% INH SOLN 0.5 MG/2.5 ML VIAL INHALATION ×4 (03:09→20:31)
[2023-01-15] MEDS: SODIUM CHLOR 3% 15 ML NEB (RESPIRATORY THERAPY) 6 ML INHALATION (04:40)
[2023-01-15 05:40] LABS: Hematocrit 32.7 % (42.0-52.0); Hemoglobin 10.4 g/dL (14.0-18.0); Mean Corpuscular HGB Conc 31.8 g/dl (32-36); Mean Corpuscular Volume 94.2 fl (80-100); Mean Platelet Volume 10.1 fl (7.4-10.4); Platelet Count Result 385 k/mm3 (150-375); Red Blood Count 3.47 M/mm3 (4.6-6.20); Red Cell Distribution Width 13.2 % (11.5-14.5); White Blood Count 10.7 K/mm3 (4.5-10.0)
[2023-01-15 05:49] LABS: Albumin Level 3.4 g/dL (3.5-5.1); Anion Gap 4 mmol/L (8-16); Blood Urea Nitrogen 12 mg/dL (9-20); Calcium 8.7 mg/dL (8.4-10.2); Carbon Dioxide 33 mmol/L (22-30); Chloride 98 mmol/L (98-107); Estimated CRCL calculation 69 ml/min; Estimated Glomerular Filt Rate > 60; Glucose 94 mg/dL (65-110); Magnesium 1.9 mg/dL (1.6-2.3); Phosphorus 4.3 mg/dL (2.5-4.5); Sodium 135 mmol/L (137-145)
[2023-01-15] MEDS: FLUTICASONE/UMECLIDIN/VILANTER 100-62.5-25 MCG ELLIPTA 1 PUFF INHALATION (08:46)
[2023-01-15] MEDS: predniSONE 5 MG TABLET PO (09:07)
[2023-01-15] MEDS: AMIODARONE HCL 200 MG TABLET 400 MG PO ×3 (09:07→16:35)
[2023-01-15] MEDS: DOXYCYCLINE HYCLATE 100 MG TABLET PO ×2 (09:08→21:24)
[2023-01-15] MEDS: APIXABAN 5 MG TABLET PO ×2 (09:08→21:24)
[2023-01-15] MEDS: levETIRAcetam 500 MG TABLET 1500 MG PO ×2 (09:08→21:23)
[2023-01-15] MEDS: DOCUSATE SODIUM 100 MG CAPSULE PO ×2 (09:08→16:35)
--- NOTE | 2023-01-15 11:30 | PCOTNOTE ---
Per RN, not to be seen due to increased heart rate and decreased O2 sats due to medical condition.
--- NOTE | 2023-01-15 11:31 | PCPTNOTE ---
The patient treatment was not able to be completed on 01/15/2023 due to patient's heart rate in the 140s and change in medical condition. Plus talked to RN and RN stated patient is not to get up at this time. Will plan to continue treatment per plan of care.
--- NOTE | 2023-01-15 11:54 | PCNFU ---
Nutrition Follow-Up Complete: Severe protein calorie malnutrition related to chronic cancer as evidenced by weight loss -23%/1 year; intake <75% needs >1 month; severe muscle wasting and fat loss as above. Goal:Improved PO intake at least 50% meals and supplements Maintain weight during admission Pt current nutrition is heart healthy. Ensure clear TID, Ensure compact BID. Nutrition recommendation: Add nutrition ice cream cup (chocolate) BID for an additional 300kcals, 9g protein Last recorded weight is 61.8 kg. Bowel Motility: No BM recorded, pt c/o constipation Labs Reviewed: Hgb:10.4, HCT:32.7, NA:135 Meds Noted: eliquis, colace, prednisone, zofran Skin: WNL Additional Notes: Pt reports poor appetite and intake r/t constipation. pt is on colace. Does likes the chocolate Ensure compact, agreed to chocolate ice cream nutrition cups as well since he likes ice cream and is requesting ice cream. Encouraged intake of meals and supplements. Monitor intakes, weights, labs, supplement tolerance, plan of care Follow up in 3 days
[2023-01-15] MEDS: AMOXICILLIN/CLAVULANATE K 875-125 MG TAB 1 TABLET PO ×2 (14:50→21:24)
[2023-01-15] MEDS: METOPROLOL TARTRATE 25 MG TABLET PO (15:38)
--- NOTE | 2023-01-15 16:15 | PM.PNCARD ---
Progress Note: A&P Assessment and Plan (1) Atrial flutter with rapid ventricular response: Code(s): I48.92 - Unspecified atrial flutter Status: Acute Assessment and Plan: Relatively asymptomatic but new diagnosis atrial flutter with rapid ventricular response 140 beats per minute. Refractory to IV metoprolol and IV amiodarone bolus. Being loaded orally with 400 mg p.o. t.i.d. but remains tachycardic. Will resume p.o. metoprolol 25mg q12 for additional rate control. Can also consider another IV amiodarone bolus if he remains tachycardic after receiving metoprolol. Systemic anticoagulation advised for stroke risk reduction. Continue apixaban 5mg b.i.d. Monitor for bleeding. (2) Hypotension: Code(s): I95.9 - Hypotension, unspecified Status: Acute Assessment and Plan: BP improved (3) COPD (chronic obstructive pulmonary disease): Qualifiers: COPD type: unspecified COPD Qualified Code(s): J44.9 - Chronic obstructive pulmonary disease, unspecified Code(s): J44.9 - Chronic obstructive pulmonary disease, unspecified Status: Acute (4) Metastatic cancer to brain: Code(s): C79.31 - Secondary malignant neoplasm of brain Status: Acute (5) Chronic respiratory failure: Qualifiers: Respiratory failure complication: unspecified whether with hypoxia or hypercapnia Qualified Code(s): J96.10 - Chronic respiratory failure, unspecified whether with hypoxia or hypercapnia Code(s): J96.10 - Chronic respiratory failure, unspecified whether with hypoxia or hypercapnia Status: Acute Subjective Date/time seen: 01/15/23 16:15 Cardiology follow up for atrial fibrillation Remains in atrial flutter with RVR despite amiodarone loading. He is asymptomatic. He is confused today but does answer questions. Review of Systems Review of Systems: All systems reviewed & are unremarkable except as noted in HPI and below Constitutional: Constitutional: Reports fatigue and Reports lethargy Eyes: Eyes: Reports no additional eye complaints ENT: Reports system reviewed and no additional complaints, except as documented Cardiovascular: Cardiovascular: Reports no additional cardiovascular complaints and Reports dyspnea on exertion Respiratory: Respiratory: Reports dyspnea on exertion Gastrointestinal: Gastrointestinal: Reports no additional gastrointestinal complaints Genitourinary: Genitourinary: Reports no additional male genitourinary complaints and Reports as per HPI Musculoskeletal: Musculoskeletal: Reports no additional musculoskeletal complaints Integumentary/Breasts: Skin/Breast: Reports system reviewed and no additional complaints, except as docu and Reports as per HPI Neurologic: Reports system reviewed and no additional complaints, except as documented and Reports as per HPI Psychiatric: Psychiatric: Reports no additional psychiatric complaints and Reports as per HPI Endocrine: Endocrine: Reports no additional endocrine complaints and Reports fatigue Hematologic/Lymphatic: Hematologic/Lymphatic: Reports as per HPI Allergic/Immunologic: Allergic/Immunologic: Reports no additional allergic/immunologic complaints Exam Narrative: . Const: General: comfortable and no acute distress HENMT: Mouth: Yes moist mucous membranes Eyes: Sclera: sclerae normal Neck: Neck: supple and no JVD Resp: Effort & Inspection: normal respiratory effort Auscultation: clear to auscultation bilaterally and diminished lung sounds Cardio: Rate: tachycardic Rhythm: abnormal rhythm regularly irregular Other: Patient has a soft systolic murmur not radiating from the left sternal border GI: Auscultation: normal bowel sounds Other: Soft nontender nondistended Skin: General skin exam: normal color Other: Warm dry, ecchymosis and bruising over upper extremities Neuro: Other: Alert and oriented x3, somewhat hard of hearing Extrem: Other: No yana
--- NOTE | 2023-01-15 16:26 | PM.IMPN ---
Progress Note: A&P Assessment and Plan (1) Atrial fibrillation with rapid ventricular response: Code(s): I48.91 - Unspecified atrial fibrillation Status: Acute Assessment and Plan: Patient with new onset atrial fibrillation on 01/14. He had episode of sinus tachycardia 2 days ago and that may have been a flutter. EKG showing diffuse ST depression so consider ischemia induced. Cole 2 Vasc score is 6. Echo: EF of 50-55% with grade 1 diastolic dysfunction and moderate to severe aortic stenosis. TSH normal. Patient is agreeable with anticoagulation. He was started on Lovenox. Change to Eliquis today. Cardiology consulted and appreciate their input. Amiodarone IV once and then oral loading. Remains in AFlutter with RVR. Tolerating the rapid HR well. Repeat Amio bolus. Continue to monitor on telemetry in IMU. (2) Syncope: Code(s): R55 - Syncope and collapse Status: Inactive Assessment and Plan: Patient had a syncopal episode. Possibly seizure. Abnormal CT head with vasogenic edema right cerebral hemisphere. 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 Neurology following and appreciate their input. EEG with no active seizures. Keppra increased to 1500 mg b.i.d. Continue the same (3) Seizure: Code(s): R56.9 - Unspecified convulsions Status: Acute Assessment and Plan: As above. Keppra increased. No driving. (4) Pneumonia: Code(s): J18.9 - Pneumonia, unspecified organism Status: Acute Assessment and Plan: CXR showing focal air space disease RLL possibly pneumonia with leukocytosis. He was started on ceftriaxone and azithromycin. Azithro changed to Doxy given interaction with Amio. Change Rocephin to Augmentin to complete a course. (5) Head injury due to trauma: Code(s): S09.90XA - Unspecified injury of head, initial encounter Status: Inactive Assessment and Plan: As above. Related to the syncope. Also with shoulder pain but left shoulder x-ray with polyarticular osteoarthritis. He also has generalized weakness. PT/OT eval. Need rehabilitation however patient refuses to go. Patient lives alone by himself. Continue therapy. (6) Elevated troponin: Code(s): R77.8 - Other specified abnormalities of plasma proteins Status: Inactive Assessment and Plan: Elevated troponin to 0.2 with flat trajectory. Related to paroxysmal AFib? Testing as above. No further workup planned by bosom presser. (7) Chronic respiratory failure: Qualifiers: Respiratory failure complication: unspecified whether with hypoxia or hypercapnia Qualified Code(s): J96.10 - Chronic respiratory failure, unspecified whether with hypoxia or hypercapnia Code(s): J96.10 - Chronic respiratory failure, unspecified whether with hypoxia or hypercapnia Status: Acute Assessment and Plan: Chronic respiratory failure on home oxygen at 3-4L but patient wears 5L at home for comfort. he was educated about the need not to use excessive O2. (8) Cancer of lung: Qualifiers: Laterality: right Lung location: hilum of lung Qualified Code(s): C34.01 - Malignant neoplasm of right main bronchus Code(s): C34.90 - Malignant neoplasm of unspecified part of unspecified bronchus or lung Status: Acute Assessment and Plan: Hx of lung cancer with mets to the brain. (9) COPD (chronic obstructive pulmonary disease): Qualifiers: COPD type: unspecified COPD Qualified Code(s): J44.9 - Chronic obstructive pulmonary disease, unspecified Code(s): J44.9 - Chronic obstructive pulmonary disease, unspecified Status: Acute Assessment and Plan: Severe COPD wth chronic resp failure. Continue Trelegy. (10) Metas
[2023-01-15] MEDS: AMIODARONE 150 MG/D5W 100 ML 150 MG/100 ML BAG 600 MG IV CONT (16:49)
[2023-01-15] MEDS: TEMAZEPAM (*CRX) 15 MG CAPSULE 30 MG PO (21:31)
[2023-01-16] VITALS (21 sets, daily range): BP systolic 128–146; BP diastolic 60–71; PULSE 73–99; RESP 18–22; TEMP 36.2–36.8; O2SAT 96–100
[2023-01-16] MEDS: LEVALBUTEROL NEB 1.25 MG/3 ML 0.63 MG INHALATION ×3 (01:58→13:10)
[2023-01-16] MEDS: IPRATROPIUM BR 0.02% INH SOLN 0.5 MG/2.5 ML VIAL INHALATION ×3 (01:58→13:10)
--- NOTE | 2023-01-16 06:05 | PCRCNOTE ---
pt refused hypertonic saline neb this AM. Pt tried to cough up sputum on his own but was unsuccessful
[2023-01-16] MEDS: FLUTICASONE/UMECLIDIN/VILANTER 100-62.5-25 MCG ELLIPTA 1 PUFF INHALATION (07:35)
[2023-01-16] MEDS: AMIODARONE HCL 200 MG TABLET 400 MG PO ×3 (09:05→17:11)
[2023-01-16] MEDS: predniSONE 5 MG TABLET PO (09:05)
[2023-01-16] MEDS: levETIRAcetam 500 MG TABLET 1500 MG PO (09:06)
[2023-01-16] MEDS: DOCUSATE SODIUM 100 MG CAPSULE PO ×2 (09:06→17:12)
[2023-01-16] MEDS: APIXABAN 5 MG TABLET PO (09:06)
[2023-01-16] MEDS: AMOXICILLIN/CLAVULANATE K 875-125 MG TAB 1 TABLET PO (09:06)
[2023-01-16] MEDS: DOXYCYCLINE HYCLATE 100 MG TABLET PO (09:06)
[2023-01-16] MEDS: METOPROLOL TARTRATE 25 MG TABLET PO (09:07)
--- NOTE | 2023-01-16 11:17 | PCOTNOTE ---
Attempted to see Patient at this time. Patient unavailable having PT services at this time.
--- NOTE | 2023-01-16 13:01 | PCOTNOTE ---
Attempted to see Patient at this time. Patient refused to participate in any activities. Patient is only going to leave this place.
--- NOTE | 2023-01-16 16:52 | PM.DS ---
DS: Admitting Diagnosis Discharge Date 01/16/23 Admitting Diagnosis Syncope DS: Discharge Diagnosis Discharge Diagnosis (1) Atrial fibrillation with rapid ventricular response: Code(s): I48.91 - Unspecified atrial fibrillation Status: Acute (2) Syncope: Code(s): R55 - Syncope and collapse Status: Inactive (3) Seizure: Code(s): R56.9 - Unspecified convulsions Status: Acute (4) Pneumonia: Code(s): J18.9 - Pneumonia, unspecified organism Status: Acute (5) Head injury due to trauma: Code(s): S09.90XA - Unspecified injury of head, initial encounter Status: Inactive (6) Elevated troponin: Code(s): R77.8 - Other specified abnormalities of plasma proteins Status: Inactive (7) Chronic respiratory failure: Qualifiers: Respiratory failure complication: unspecified whether with hypoxia or hypercapnia Qualified Code(s): J96.10 - Chronic respiratory failure, unspecified whether with hypoxia or hypercapnia Code(s): J96.10 - Chronic respiratory failure, unspecified whether with hypoxia or hypercapnia Status: Acute (8) Cancer of lung: Qualifiers: Laterality: right Lung location: hilum of lung Qualified Code(s): C34.01 - Malignant neoplasm of right main bronchus Code(s): C34.90 - Malignant neoplasm of unspecified part of unspecified bronchus or lung Status: Acute (9) COPD (chronic obstructive pulmonary disease): Qualifiers: COPD type: unspecified COPD Qualified Code(s): J44.9 - Chronic obstructive pulmonary disease, unspecified Code(s): J44.9 - Chronic obstructive pulmonary disease, unspecified Status: Acute (10) Metastatic cancer to brain: Code(s): C79.31 - Secondary malignant neoplasm of brain Status: Acute DS: Summary Hospital Course Reason for hospitalization: 77yo male with hx of metastatic lung CA to the brain and seizure here for syncopal episode. Please see H&P for details Hospital Course: Patient had a syncopal episode prompting this admission. Possibly seizure. CT head was abnormal with vasogenic edema right cerebral hemisphere.? 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 Neurology was consulted and appreciate their input. EEG with no active seizures. Keppra was increased to 1500 mg b.i.d. During his hospital course, patient developed new onset atrial fibrillation on 01/14.? He had episode of sinus tachycardia 2 days prior and that may have been AFlutter.? EKG showing diffuse ST depression so consider ischemia induced. Cole 2 Vasc score is 6.? Echo: EF of 50-55% with grade 1 diastolic dysfunction and moderate to severe aortic stenosis.? TSH normal. Patient was agreeable with anticoagulation.? He was started on Lovenox and changed to Eliquis. Cardiology was consulted and appreciate their input. Elevated troponin to 0.2 with flat trajectory. Related to paroxysmal AFib? Amiodarone IV once and then oral loading. He converted to NSR. CXR showing focal air space disease RLL possibly pneumonia with leukocytosis. This may be related to aspiration. He was started on ceftriaxone and azithromycin. Azithro changed to Doxy given interaction with Amio. Changed Rocephin to Augmentin to complete a course. Raymon had a head injury related to the syncope. Also with shoulder pain but left shoulder x-ray with polyarticular osteoarthritis. He also has generalized weakness. He worked with PT/OT and he has been up walking in the halls. He would benefit from rehabilitation however patient refuses to go.? Patient lives alone by himself. Patient has chronic respiratory failure on home oxygen at 3-4L but patient wears 5L at home for comfort. He was educated about the need not to use excessive O2. Patient overall did well was
== END 2023-01-16 19:00 | disposition home health service (06) | DRG 100 ==
PROVIDERS: Internal Medicine; Admitting Provider Internal Medicine; PCP Family Medicine; Visit Provider Internal Medicine
DX: G40.909 Epilepsy, unspecified, not intractable, without status epilepticus (principal); E43 Unspecified severe protein-calorie malnutrition; J18.9 Pneumonia, unspecified organism; J44.0 Chronic obstructive pulmonary disease with (acute) lower respiratory infection; J96.10 Chronic respiratory failure, unspecified whether with hypoxia or hypercapnia; C79.31 Secondary malignant neoplasm of brain; Z68.1 Body mass index [BMI] 19.9 or less, adult; I48.91 Unspecified atrial fibrillation; I35.0 Nonrheumatic aortic (valve) stenosis; I95.9 Hypotension, unspecified; M15.9 Polyosteoarthritis, unspecified; R29.6 Repeated falls; R77.8 Other specified abnormalities of plasma proteins; S01.81XA Laceration without foreign body of other part of head, initial encounter; Z66 Do not resuscitate; W19.XXXA Unspecified fall, initial encounter; I25.2 Old myocardial infarction; Z99.81 Dependence on supplemental oxygen; Z87.891 Personal history of nicotine dependence; Z85.118 Personal history of other malignant neoplasm of bronchus and lung
CPT/HCPCS: 36415; 70553; 71275; 73030; 80048; 80053; 80069; 83735; 84100; 84443; 84484; 85025; 85027; 85610; 85730; 87040; 93005; 93306; 93970; 94640; 95816; 97110; 97161; 97165; 97530; A9270; A9577; J0282; J0456; J0696; J1650; J7050; J7512; Q9967

== ENCOUNTER 2023-04-24 10:30 | Emergency (ER) | payer MEDICARE, SELFPAY ==
[2023-04-24] VITALS (39 sets, daily range): BP systolic 96–153; BP diastolic 60–100; PULSE 96–146; RESP 20–36; TEMP 36.8; O2SAT 93–100
--- NOTE | ~2023-04-24 | XR_ITS ---
XR chest 1V portable DATE: 04/24/2023 10:56 INDICATION: Dyspnea TECHNIQUE: 2 portable AP views on 04/24/2023 1055 and 56 hours COMPARISON: January 14, 2023 CT pulmonary scan January 11, 2023 portable AP chest FINDINGS: Bilateral hyperinflation consistent with COPD. Mild infiltrate, atelectasis and/or scarring at the left base. The lungs otherwise appear clear. Mild chronic blunting of the costophrenic angles. Normal heart size. Aortic arch calcification. No hilar or mediastinal enlargement. Osteopenia. Dextroscoliosis and mild degenerative spurring of the thoracic spine. IMPRESSION: Bilateral hyperinflation consistent with COPD Mild infiltrate, atelectasis or scarring in the left lower lung Aortic atherosclerosis Reviewed, dictated and finalized at location B.
--- NOTE | 2023-04-24 10:32 | ECG_ITS ---
Measurements Intervals [place] Rate: 135 P: 86 [place]: 150 QRS: 85 QRSD: 130 T: -3 QT: 317 QTc: 476 Interpretive Statements ATRIAL FLUTTER/TACHYCARDIA WITH RAPID VENTRICULAR RESPONSE INFERIOR INFARCT, AGE INDETERMINATE ST-T WAVE ABNORMALITY IN ANTEROLATERAL LEADS- CONSIDER ISCHEMIA BASELINE ARTIFACT- I, II, III, AVR, AVL, AVF, V3-V6 ABNORMAL ECG COMPARED TO ECG 01/14/2023 09:40:08 ATRIAL FLUTTER/TACHYCARDIA NOW PRESENT Electronically Signed On 04-24-2023 11:07:58 CDT by Branden Alegria D.O.
--- NOTE | 2023-04-24 10:34 | ED.SOB ---
HPI - SOB/Dyspnea General Chief Complaint: Shortness of Breath/Dyspnea Stated Complaint: SOB/distress Time Seen by Provider: 04/24/23 10:32 Source: patient, EMS and RN notes reviewed Mode of arrival: EMS Limitations: clinical condition History of Present Illness MD elicited complaint: shortness of breath Pertinent past history: COPD Onset (ago): day(s) (2) Timing: constant Severity: moderate Exacerbating factors: lying flat and exertion Relieving factors: oxygen Known history of: COPD Associated symptoms: denies other symptoms Treatment prior to arrival: oxygen and other (CPAP by EMS) Related Data Home oxygen amount: none Home Medications Medication Instructions Recorded Confirmed temazepam 15 mg capsule 30 mg PO HS 01/30/20 04/24/23 prednisone 5 mg tablet 5 mg PO DAILY 01/12/23 04/24/23 apixaban 5 mg tablet (Eliquis) 5 mg PO BID 04/24/23 04/24/23 levetiracetam 500 mg tablet 1,000 mg PO Q12HR 04/24/23 04/24/23 (Keppra) Allergies Allergy/AdvReac Type Severity Reaction Status Date / Time No Known Drug Allergies Allergy Unknown Unknown Verified 04/24/23 11:00 Review of Systems Review of Systems: All systems reviewed & are unremarkable except as noted in HPI and below PMFSH Past Medical History Medical History (Updated 04/24/23 @ 17:30 by Nikki Medina PA-C) Aortic stenosis Chronic obstructive pulmonary disease Chronic respiratory failure with hypoxia, on home oxygen therapy Diastolic congestive heart failure Hypertension Lung cancer metastatic to brain Status post radiation therapy. Myocardial infarction Old cerebrovascular accident without late effect Seizure Family History Family History Father , age 73 History of throat cancer Myocardial infarction Mother Hypertension Coronary artery disease Mother Hypertension Family history of coronary artery disease Father Acute myocardial infarction, Onset Age: 73 Other Family history of throat cancer Social History Social History (Updated 04/24/23 @ 17:28 by Nikki Medina PA-C) Social History: Surrogate medical decision maker: Terra Sky, daughter. Code status: Do not resuscitate. Smoking packs per day: 3 Smoking cigarettes per day: 60.0 Years smoked: 50 Smoking pack-years: 150.00 Smoking status: Former smoker Second hand tobacco smoke exposure: Yes Alcohol intake: current Drinks per week: 28 Alcohol use details: 1-4 beers daily. Substance use: never Lack of Transportation: No Lack of Food: Never True Current Housing: I Have Housing Concerned About Future Housing: No Difficulty Paying Gas/Electric Bills: No Difficulty Paying for Meds: No Currently Unemployed: No Education: Decline to Answer Difficulty w/ Childcare or Family Care: No Additional living arrangements comments: Lives in own home. Additional occupation/education comments: Retired from working in [employer]. [place] [employer] , was in the [employer]. Spiritual care concerns: No Exam Const: General: acute distress moderate and respiratory, anxious, ill appearing acutely and chronically and thin Orientation/consciousness: patient oriented x3 HENMT: Head: normal to inspection Ears: external ears normal Face/Nose/Sinus: Normal external nose present Face and sinus: normal facial exam Mouth: Yes moist mucous membranes Eyes: Conjunctivae: conjunctivae normal Pupils: Equal, round and reactive pupils present EOM: EOMs intact bilaterally Neck: Neck: normal visual inspection Chest: Chest palpation & inspection: normal inspection of the chest Resp: Effort & Inspection: labored, retractions intercostal, tachypneic and uses accessory muscles Auscultation: crackles diffuse and diminished lung sounds diffuse Cardio: Rate: tachycardic Rhythm: regular rhythm GI: GI Palp: Yes Soft to palpation and No Tenderness to palpation present (GI) Auscul
[2023-04-24] MEDS: methylPREDNISolone SOD SUCC 125 MG VIAL IV PUSH (10:50)
[2023-04-24 10:55] LABS: Hematocrit 35.2 % (37.0-46.0); Hemoglobin 11.4 g/dL (12.4-15.3); Mean Corpuscular HGB Conc 32.4 g/dL (32.0-36.0); Mean Corpuscular Volume 92.6 fL (78.0-102.0); Mean Platelet Volume 10.3 fl (8.7-11.0); Platelet Count Result 451 K/mm3 (150-420); Red Cell Distribution Width 14.3 % (11.6-14.4)
[2023-04-24] MEDS: IPRATROPIUM 0.5 MG/ALBUTEROL SULFATE 2.5 MG AMPUL.NEB 3 ML (11:02)
[2023-04-24 11:04] LABS: White Blood Count 28.7 K/mm3 (4.8-10.8)
[2023-04-24 11:10] LABS: INR 0.9; Partial Thromboplastin Time 22.3 SEC (23.90-30.70); Prothrombin Time 10.3 Seconds (9.50-12.10)
[2023-04-24 11:18] LABS: Alanine Aminotransferase 26 U/L (16-63); Albumin Level 3.1 g/dL (3.4-5.0); Alkaline Phosphatase 83 U/L (46-116); Anion Gap 8 mmol/L (8-16); Aspartate Amino Transferase 14 U/L (15-37); Bilirubin,Total 0.4 mg/dL (0.00-1.00); Blood Urea Nitrogen 9 mg/dL (7-18); Carbon Dioxide 32 mmol/L (21-32); Chloride 101 mmol/L (98-108); Estimated CRCL calculation 35 ml/min; Estimated Glomerular Filt Rate > 60; Glucose 148 mg/dL (70-99); NT Pro B Type Natriuretic Pept 3423 pg/mL (0-450); Osmolality Calculated 293 mOsm/kg (285-295); Potassium 3.9 mmol/L (3.5-5.1); Sodium 141 mmol/L (136-145); Total Protein 6.6 g/dL (6.4-8.2)
[2023-04-24 11:20] LABS: Troponin I 60.7 ng/L (0.00-60.4)
[2023-04-24 11:21] LABS: CRP 1.2 mg/dL (0.0-0.9)
[2023-04-24 11:21] LABS: Ethanol < 3 mg/dL (0-6)
[2023-04-24 11:25] LABS: Lactic Acid Reflex 2.4 mmol/L (0.4-2.0)
[2023-04-24 11:31] LABS: Band Neutrophils Percent 1 % (0-6); Lymphocytes Absolute Manual 0.86 K/mm3 (1.1-4.5); Lymphocytes Percent Manual 3 % (18-44); Monocytes Absolute Manual 0.86 K/mm3 (0.1-0.90); Monocytes Percent Manual 3 % (3-9); Neutrophils Absolute Manual 26.69 K/mm3 (1.3-6.7); Neutrophils Percent Manual 92 % (46-73); Total Cells Counted 100
[2023-04-24 11:32] LABS: Myelocytes Percent 1 %; Platelet Estimate Increased (Adequate); Schistocytes None Seen (NORMAL)
[2023-04-24] MEDS: ASPIRIN 81 MG CHEWABLE TABLET 324 MG PO (11:40)
[2023-04-24] MEDS: dilTIAZem 100 MG/100 ML 100 MG/100 ML BAG IV CONT (11:46)
[2023-04-24] MEDS: dilTIAZem HCl INJ 25 MG/5 ML VIAL 15 MG IV PUSH (11:46)
[2023-04-24 11:49] LABS: Base Excess ABG 6.7 mmol/L (0-2); HCO3 ABG 31.8 mmol/L (23-29); Oxygen Content ABG 15.6 %vol (16.0-22.0); Oxygen Saturation ABG 93.8 % (95-97); Oxyhemoglobin 93.1 % (94-100); PCO2 ABG 47.5 mmHg (35-45); PO2 ABG 74.2 mmHg (75-85); Total Hemoglobin 11.9 g/dL (12.0-18.0); pH ABG 7.44 (7.35-7.45)
[2023-04-24] MEDS: HEPARIN SOD/D5W 100 UNITS/ML 25,000 UNITS/250 ML BAG 6 UNITS IV CONT (11:49)
[2023-04-24 11:52] LABS: Device BIPAP; Modified Allen's Test Pass; Site Drawn RIGHT RADIAL
[2023-04-24] MEDS: HEPARIN SODIUM 5,000 UNITS/ML VIAL 3000 UNITS IV PUSH (11:52)
[2023-04-24 11:59] LABS: Expiratory Pressure 6 cmH2O; Inspiratory Pressure 14 cmH2O
[2023-04-24 14:07] LABS: Reflex Lactic Acid Yes or No Add Lactic
--- NOTE | 2023-04-24 14:18 | PC.NURSE ---
1415 attempted to give report to nurse stated she was at lunch and asked to call back informed them pt was in route in 5 min
[2023-04-24 14:39] LABS: Lactic Acid 1.3 mmol/L (0.4-2.0)
[2023-04-24 15:45] LABS: Glucose Point of Care 122 mg/dl (65-105)
--- NOTE | 2023-04-30 13:35 | PC.NURSE ---
Final blood culture report: no growth after 5 days. no further treatment or action needed.
== END 2023-04-24 14:41 | disposition short-term general hospital (02) ==
PROVIDERS: Emergency Provider Emergency Medicine; PCP Family Medicine
DX: J18.9 Pneumonia, unspecified organism (principal); I11.0 Hypertensive heart disease with heart failure; I50.23 Acute on chronic systolic (congestive) heart failure; I48.92 Unspecified atrial flutter; R06.03 Acute respiratory distress; I25.2 Old myocardial infarction; Z86.73 Personal history of transient ischemic attack (TIA), and cerebral infarction without residual deficits; Z79.01 Long term (current) use of anticoagulants; Z87.891 Personal history of nicotine dependence; Z79.899 Other long term (current) drug therapy
CPT/HCPCS: 36415; 36600; 71045; 80053; 80307; 82805; 82948; 83605; 83735; 83880; 84484; 85025; 85610; 85730; 86140; 87040; 93005; 94640; 96365; 96366; 96367; 96368; 96375; 99291; A9270; J0696; J1644; J2930

== ENCOUNTER 2023-04-24 15:31 | Inpatient (IN) | payer MEDICARE, SELFPAY ==
[2023-04-24] VITALS (12 sets, daily range): BP systolic 100–115; BP diastolic 58–64; PULSE 63–100; RESP 20–26; TEMP 36.6; O2SAT 96–100; BMI 16.2
--- NOTE | 2023-04-24 15:31 | ECG_ITS ---
Measurements Intervals [place] Rate: 99 P: 80 [place]: 171 QRS: 76 QRSD: 113 T: 52 QT: 365 QTc: 470 Interpretive Statements SINUS RHYTHM INFERIOR INFARCT, AGE INDETERMINATE BORDERLINE ST-T WAVE ABNORMALITY- ANTERIOR LEADS ABNORMAL ECG COMPARED TO ECG 04/24/2023 10:44:27 SINUS RHYTHM NOW PRESENT Electronically Signed On 04-24-2023 16:00:03 CDT by Branden Alegria D.O.
--- NOTE | 2023-04-24 15:33 | PM.IMHP ---
H&P: HPI History of Present Illness Date/Time: 04/24/23 16:15 Chief Complaint: Shortness of breath. Narrative: This is a 78-year-old male with multiple medical problems including chronic obstructive pulmonary disease, heart failure with preserved ejection fraction, moderate to severe aortic valve stenosis by echocardiogram in January 2023, pulmonary hypertension, paroxysmal atrial fibrillation, and history of seizure who presented to the emergency department at the [facility] via EMS earlier today for evaluation of shortness of breath. Patient provides the following history although some of the following is supplemented via a review of his EMR as he is currently on BiPAP. He is on 5 L oxygen at home and is not unusual for him to be short of breath with minimal activity. He is active and social however and drives his scooter to the local bar each day for a grilled cheese, chocolate ice cream, and 1 to 4 beers. The past 2 days he has been more short of breath than usual and he has noticed a slight increase in his cough though that is not necessarily productive. Family members come each morning to help him out of bed and get ready for the day and when his [id number] came he appeared to be much more weak than usual. She attempted to get him out of bed and he became extremely short of breath and emergency services were contacted. On their arrival his SpO2 was reportedly 86% on his 5 L (EMS notes his oxygen tubing is very long) and he was started on CPAP and eventually transition to BiPAP on arrival to the ED. He was found to be in atrial flutter with rapid ventricular response and he received a diltiazem bolus with improvement in his rate. At this time he remains on a diltiazem drip though he has since converted to a normal sinus rhythm. Transfer was initiated to [place] given his comorbidities. At the time my evaluation he has asked to be taken off the BiPAP and he is back on his usual 5 L nasal cannula with SpO2 is in the upper 90s and he does not appear to be in any distress. He denies fever, chills, sweats, sinus congestion, sore throat, chest and pleuritic pain, palpitations, nausea, vomiting, and diarrhea. No syncope or near syncope. He denies sick contacts. Review of Systems Review of Systems: Twelve systems were reviewed. He has lost weight over the years. Denies orthopnea and paroxysmal nocturnal dyspnea. No lower extremity edema. Denies calf pain and tenderness. No history of venous thromboembolism. He is generally weak and has a history of falls. No recent head trauma or significant injuries though he does have some skin tears on his arms. He also has scattered bruising and reports that he frequently bumps into things. Except as documented, all other systems were reviewed and are negative. [facility] Past Medical History Medical History (Updated 04/24/23 @ 17:30 by Nikki Medina PA-C) Aortic stenosis Chronic obstructive pulmonary disease Chronic respiratory failure with hypoxia, on home oxygen therapy Diastolic congestive heart failure Hypertension Lung cancer metastatic to brain Status post radiation therapy. 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 Code status: Do not resuscitate. Smoking packs
--- NOTE | 2023-04-24 16:21 | PC.NURSE ---
This patient, Jabier Chisholm Rashard, was admitted to IMU Room 207-01. Patient/family oriented to hospital policies and general routines including ID bracelet, bed and alarms, visiting hours, pain management, procedures, bathroom and other care routines, personal items, smoking policy, room service/diet, and visiting hours. Information on how to activate the Rapid Response Team has been discussed. Patient/Family are encouraged to report perceived risks to care and to ask questions if they do not understand what they are told or what they should do.
[2023-04-24 16:36] LABS: Troponin I 0.678 ng/mL (0.000-0.034)
[2023-04-24 16:41] LABS: Device NON-INVASIVE VENT; Fractional Inspired Oxygen 40 %; HCO3 VBG 26.1 mEq/l (24.0-30.0); Non-Invasive Inspiratory Pressure 14 CMH2O; Non-Invasive Vent Rate 16 /MIN; PO2 VBG 65.8 mmHg (35.0-45.0); pH VBG 7.455 (7.300-7.400)
[2023-04-24 16:42] LABS: Non-Invasive Expiratory Pressure 6 CMH2O
[2023-04-24] MEDS: methylPREDNISolone SOD SUCC 125 MG VIAL 60 MG IV PUSH (18:55)
[2023-04-24] MEDS: DOXYCYCLINE 100 MG/NS 100 ML 100 MG/100 ML BAG IVPB (18:56)
[2023-04-24 19:02] LABS: Troponin I 0.892 ng/mL (0.000-0.034)
[2023-04-24] MEDS: guaiFENesin 12 HR 600 MG TABCR PO (20:15)
[2023-04-24] MEDS: TEMAZEPAM (*CRX) 15 MG CAPSULE 30 MG PO (20:15)
[2023-04-24] MEDS: levETIRAcetam 500 MG TABLET 1000 MG PO (20:15)
[2023-04-24] MEDS: IPRATROPIUM BR 0.02% INH SOLN 0.5 MG/2.5 ML VIAL INHALATION (20:31)
[2023-04-24] MEDS: LEVALBUTEROL NEB 1.25 MG/3 ML INHALATION (21:07)
[2023-04-24 22:06] LABS: Troponin I 0.919 ng/mL (0.000-0.034)
[2023-04-25] VITALS (29 sets, daily range): BP systolic 94–170; BP diastolic 51–87; PULSE 74–104; RESP 16–22; TEMP 36.3–36.8; O2SAT 95–100
[2023-04-25] MEDS: IPRATROPIUM BR 0.02% INH SOLN 0.5 MG/2.5 ML VIAL INHALATION ×5 (01:44→20:15)
[2023-04-25] MEDS: LEVALBUTEROL NEB 1.25 MG/3 ML INHALATION ×5 (01:44→20:15)
[2023-04-25 05:01] LABS: Hematocrit 29.2 % (42.0-52.0); Hemoglobin 9.2 g/dL (14.0-18.0); Mean Corpuscular HGB Conc 31.5 g/dl (32-36); Mean Corpuscular Hemoglobin 29.5 pg (26-34); Mean Corpuscular Volume 93.6 fl (80-100); Mean Platelet Volume 10.5 fl (7.4-10.4); Platelet Count Result 297 k/mm3 (150-375); Red Blood Count 3.12 M/mm3 (4.6-6.20); Red Cell Distribution Width 14.8 % (11.5-14.5); White Blood Count 26.6 K/mm3 (4.5-10.0)
[2023-04-25 05:13] LABS: Anion Gap 7 mmol/L (8-16); Blood Urea Nitrogen 15 mg/dL (9-20); Calcium 8.5 mg/dL (8.4-10.2); Carbon Dioxide 27 mmol/L (22-30); Chloride 98 mmol/L (98-107); Estimated CRCL calculation 48 ml/min; Estimated Glomerular Filt Rate > 60; Glucose 158 mg/dL (65-110); Magnesium 2.1 mg/dL (1.6-2.3); Potassium 3.9 mmol/L (3.4-5.0); Sodium 132 mmol/L (137-145)
[2023-04-25 05:43] LABS: Thyroid Stimulating Hormone Reflex 0.396 uIU/mL (0.465-4.68)
[2023-04-25] MEDS: methylPREDNISolone SOD SUCC 125 MG VIAL 60 MG IV PUSH ×5 (06:33→23:05)
[2023-04-25] MEDS: DOXYCYCLINE 100 MG/NS 100 ML 100 MG/100 ML BAG IVPB ×2 (06:33→17:01)
[2023-04-25 07:13] LABS: Free T4 Free Thyroxine Reflex 1.77 ng/dL (0.78-2.19)
[2023-04-25 08:00] LABS: Total Triiodothyronine (T3) 0.57 NG/ML (0.97-1.69)
[2023-04-25] MEDS: FLUTICASONE/UMECLIDIN/VILANTER 100-62.5-25 MCG ELLIPTA 1 PUFF INHALATION (08:25)
[2023-04-25] MEDS: AMIODARONE HCL 200 MG TABLET PO (10:20)
[2023-04-25] MEDS: ROFLUMILAST 500 MCG TABLET PO (10:20)
[2023-04-25] MEDS: guaiFENesin 12 HR 600 MG TABCR PO ×2 (10:20→20:42)
[2023-04-25] MEDS: levETIRAcetam 500 MG TABLET 1000 MG PO ×2 (10:20→20:42)
[2023-04-25] MEDS: METOPROLOL SUCCINATE EXT REL 25 MG TABCR PO (10:20)
[2023-04-25] MEDS: APIXABAN 5 MG TABLET PO ×2 (10:21→17:01)
--- NOTE | 2023-04-25 17:26 | WPDPN ---
Progress Note: A&P Assessment and Plan (1) Acute and chronic respiratory failure: Code(s): J96.20 - Acute and chronic respiratory failure, unspecified whether with hypoxia or hypercapnia Status: Acute Assessment and Plan: Patient became increasingly short of breath this morning and was hypoxic on EMS arrival. Initially started on CPAP which only improved his SpO2 to 86%. He was transition to BiPAP at the outside facility and after several hours he has been weaned to his usual 5 L nasal cannula. 04/25/2023 interval history: patient with shortness of breath, now in exacerbation of COPD and has severe aortic stenosis, patient is being treated with methylprednisone and broncodialtors, ceftriaxone and azithromycine, patient stats feels little better compared to when he arrived, will continue monitor and have PT/OT evaluate patient, (2) Acute exacerbation of chronic obstructive pulmonary disease: Code(s): J44.1 - Chronic obstructive pulmonary disease with (acute) exacerbation Status: Acute Assessment and Plan: He has been started on antibiotics, scheduled bronchodilators q.4 hours, and IV Solu-Medrol. Mucinex and Cornet ordered to help mobilize secretions. (3) Atrial flutter with rapid ventricular response: Code(s): I48.92 - Unspecified atrial flutter Status: Inactive Assessment and Plan: Converted to sinus rhythm on diltiazem drip. Continue amiodarone metoprolol succinate. He is on Eliquis for stroke prophylaxis (4) Elevated troponin: Code(s): R77.8 - Other specified abnormalities of plasma proteins Status: Acute Assessment and Plan: Likely related to the above in addition to hypoxia. He denies chest pain. Troponins will be trended to peak however. (5) Diastolic congestive heart failure: Code(s): I50.30 - Unspecified diastolic (congestive) heart failure Status: Acute Assessment and Plan: Clinically compensated. Avoid over-hydration. (6) Leukocytosis: Code(s): D72.829 - Elevated white blood cell count, unspecified Status: Acute Assessment and Plan: White blood cell count was 28.7. Chest x-ray shows possible mild infiltrate versus atelectasis or scarring the left lower lung zone. Given his lung disease he has been started on empiric antibiotics though I am wondering if the elevated white blood cell count may be more of a stress response. Lactic acid level was high as well but may be related to tissue hypoxia. Blood and sputum cultures have been ordered. (7) Lung cancer metastatic to brain: Code(s): C34.90 - Malignant neoplasm of unspecified part of unspecified bronchus or lung; C79.31 - Secondary malignant neoplasm of brain Status: Acute Assessment and Plan: Patient was treated with radiation for lung cancer and also had radiation to brain metastases; he has not followed up with his oncologist since prior to the COVID pandemic. Brain MRI in January 2023 showed a 10 mm enhancing mass in the medial right parietal lobe which was stable when compared to imaging from 04/23/2019 consistent with metastatic disease in addition to findings of radiation changes and/or vasogenic edema in the surrounding white matter. Patient does not wish for further treatment or follow-up. (8) Hypertension: Code(s): I10 - Essential (primary) hypertension Status: Acute Assessment and Plan: Blood pressures were reviewed. A few readings have been at the low end of normal while on Cardizem drip which has since been discontinued. Continue to monitor. (9) Aortic stenosis: Code(s): I35.0 - Nonrheumatic aortic (valve) stenosis Status: Acute Assessment and Plan: Moderate to severe aortic stenosis on echocardiogram in January 2023. Subjective Date/time seen: 04/25/23 17:26 Interval history: Shortness of breath. HPI-Narrative: This is a 78-year-old male with multiple medical pr
[2023-04-25] MEDS: TEMAZEPAM (*CRX) 15 MG CAPSULE 30 MG PO (20:42)
[2023-04-26] VITALS (24 sets, daily range): BP systolic 94–147; BP diastolic 37–66; PULSE 62–86; RESP 16–20; TEMP 36.4–36.9; O2SAT 95–100
[2023-04-26 04:56] LABS: Hematocrit 27.4 % (42.0-52.0); Mean Corpuscular HGB Conc 32.8 g/dl (32-36); Mean Corpuscular Hemoglobin 29.9 pg (26-34); Mean Platelet Volume 10.5 fl (7.4-10.4); Platelet Count Result 288 k/mm3 (150-375); Red Blood Count 3.01 M/mm3 (4.6-6.20); Red Cell Distribution Width 14.6 % (11.5-14.5); White Blood Count 26.9 K/mm3 (4.5-10.0)
[2023-04-26 05:06] LABS: Anion Gap 4 mmol/L (8-16); Blood Urea Nitrogen 16 mg/dL (9-20); Calcium 8.5 mg/dL (8.4-10.2); Carbon Dioxide 30 mmol/L (22-30); Chloride 97 mmol/L (98-107); Estimated CRCL calculation 55 ml/min; Estimated Glomerular Filt Rate > 60; Glucose 114 mg/dL (65-110); Magnesium 2.1 mg/dL (1.6-2.3); Potassium 3.7 mmol/L (3.4-5.0); Sodium 131 mmol/L (137-145)
[2023-04-26] MEDS: methylPREDNISolone SOD SUCC 125 MG VIAL 60 MG IV PUSH ×4 (06:49→23:08)
[2023-04-26] MEDS: DOXYCYCLINE 100 MG/NS 100 ML 100 MG/100 ML BAG IVPB ×2 (06:49→17:54)
[2023-04-26] MEDS: FLUTICASONE/UMECLIDIN/VILANTER 100-62.5-25 MCG ELLIPTA 1 PUFF INHALATION (07:39)
[2023-04-26] MEDS: LEVALBUTEROL NEB 1.25 MG/3 ML INHALATION ×3 (07:39→19:51)
[2023-04-26] MEDS: IPRATROPIUM BR 0.02% INH SOLN 0.5 MG/2.5 ML VIAL INHALATION ×3 (07:39→19:51)
[2023-04-26] MEDS: levETIRAcetam 500 MG TABLET 1000 MG PO ×2 (09:22→21:02)
[2023-04-26] MEDS: AMIODARONE HCL 200 MG TABLET PO (09:22)
[2023-04-26] MEDS: guaiFENesin 12 HR 600 MG TABCR PO ×2 (09:22→21:02)
[2023-04-26] MEDS: METOPROLOL SUCCINATE EXT REL 25 MG TABCR PO (09:22)
[2023-04-26] MEDS: APIXABAN 5 MG TABLET PO ×2 (09:22→17:54)
[2023-04-26] MEDS: ROFLUMILAST 500 MCG TABLET PO (09:22)
--- NOTE | 2023-04-26 13:56 | P.PN_ITS ---
Progress Note: A&P Assessment and Plan (1) Acute and chronic respiratory failure: Code(s): J96.20 - Acute and chronic respiratory failure, unspecified whether with hypoxia or hypercapnia Status: Acute Assessment and Plan: Patient became increasingly short of breath this morning and was hypoxic on EMS arrival. Initially started on CPAP which only improved his SpO2 to 86%. He was transition to BiPAP at the outside facility and after several hours he has been weaned to his usual 5 L nasal cannula. 04/26/2023 interval history: patient with shortness of breath, now in exacerbation of COPD and has severe aortic stenosis, patient is being treated with methylprednisone and broncodialtors, ceftriaxone and azithromycine, patient sputum culture is growing Pseudomonas will switch ceftriaxone to Levaquin and stop azithromycin, Patient stats feels little better compared to when he arrived, will continue monitor and have PT/OT evaluate patient, (2) Acute exacerbation of chronic obstructive pulmonary disease: Code(s): J44.1 - Chronic obstructive pulmonary disease with (acute) exacerbation Status: Acute Assessment and Plan: He has been started on antibiotics, scheduled bronchodilators q.4 hours, and IV Solu-Medrol. Mucinex and Cornet ordered to help mobilize secretions. (3) Atrial flutter with rapid ventricular response: Code(s): I48.92 - Unspecified atrial flutter Status: Inactive Assessment and Plan: Converted to sinus rhythm on diltiazem drip. Continue amiodarone metoprolol succinate. He is on Eliquis for stroke prophylaxis (4) Elevated troponin: Code(s): R77.8 - Other specified abnormalities of plasma proteins Status: Acute Assessment and Plan: Likely related to the above in addition to hypoxia. He denies chest pain. Troponins will be trended to peak however. (5) Diastolic congestive heart failure: Code(s): I50.30 - Unspecified diastolic (congestive) heart failure Status: Acute Assessment and Plan: Clinically compensated. Avoid over-hydration. (6) Leukocytosis: Code(s): D72.829 - Elevated white blood cell count, unspecified Status: Acute Assessment and Plan: White blood cell count was 28.7. Chest x-ray shows possible mild infiltrate versus atelectasis or scarring the left lower lung zone. Given his lung disease he has been started on empiric antibiotics though I am wondering if the elevated white blood cell count may be more of a stress response. Lactic acid level was high as well but may be related to tissue hypoxia. Blood and sputum cultures have been ordered. (7) Lung cancer metastatic to brain: Code(s): C34.90 - Malignant neoplasm of unspecified part of unspecified bronchus or lung; C79.31 - Secondary malignant neoplasm of brain Status: Acute Assessment and Plan: Patient was treated with radiation for lung cancer and also had radiation to brain metastases; he has not followed up with his oncologist since prior to the COVID pandemic. Brain MRI in January 2023 showed a 10 mm enhancing mass in the medial right parietal lobe which was stable when compared to imaging from 04/23/2019 consistent with metastatic disease in addition to findings of radiation changes and/or vasogenic edema in the surrounding white matter. Patient does not wish for further treatment or follow-up. (8) Hypertension: Code(s): I10 - Essential (primary) hypertension Status: Acute Assessment and Plan: Blood pressures were reviewed. A few readings have been at the low end of normal while on
--- NOTE | 2023-04-26 14:01 | PM.DS ---
DS: Admitting Diagnosis Discharge Date 04/26/2023 Admitting Diagnosis Shortness of breath DS: Discharge Diagnosis Discharge Diagnosis (1) Acute and chronic respiratory failure: Code(s): J96.20 - Acute and chronic respiratory failure, unspecified whether with hypoxia or hypercapnia Status: Acute Assessment and Plan: Patient became increasingly short of breath this morning and was hypoxic on EMS arrival. Initially started on CPAP which only improved his SpO2 to 86%. He was transition to BiPAP at the outside facility and after several hours he has been weaned to his usual 5 L nasal cannula. 04/26/2023 interval history: patient with shortness of breath, now in exacerbation of COPD and has severe aortic stenosis, patient is being treated with methylprednisone and broncodialtors, ceftriaxone and azithromycine, patient sputum culture is growing Pseudomonas will switch ceftriaxone to Levaquin and stop azithromycin, Patient stats feels little better compared to when he arrived, will continue monitor and have PT/OT evaluate patient, (2) Acute exacerbation of chronic obstructive pulmonary disease: Code(s): J44.1 - Chronic obstructive pulmonary disease with (acute) exacerbation Status: Acute Assessment and Plan: He has been started on antibiotics, scheduled bronchodilators q.4 hours, and IV Solu-Medrol. Mucinex and Cornet ordered to help mobilize secretions. (3) Atrial flutter with rapid ventricular response: Code(s): I48.92 - Unspecified atrial flutter Status: Inactive Assessment and Plan: Converted to sinus rhythm on diltiazem drip. Continue amiodarone metoprolol succinate. He is on Eliquis for stroke prophylaxis (4) Elevated troponin: Code(s): R77.8 - Other specified abnormalities of plasma proteins Status: Acute Assessment and Plan: Likely related to the above in addition to hypoxia. He denies chest pain. Troponins will be trended to peak however. (5) Diastolic congestive heart failure: Code(s): I50.30 - Unspecified diastolic (congestive) heart failure Status: Acute Assessment and Plan: Clinically compensated. Avoid over-hydration. (6) Leukocytosis: Code(s): D72.829 - Elevated white blood cell count, unspecified Status: Acute Assessment and Plan: White blood cell count was 28.7. Chest x-ray shows possible mild infiltrate versus atelectasis or scarring the left lower lung zone. Given his lung disease he has been started on empiric antibiotics though I am wondering if the elevated white blood cell count may be more of a stress response. Lactic acid level was high as well but may be related to tissue hypoxia. Blood and sputum cultures have been ordered. (7) Lung cancer metastatic to brain: Code(s): C34.90 - Malignant neoplasm of unspecified part of unspecified bronchus or lung; C79.31 - Secondary malignant neoplasm of brain Status: Acute Assessment and Plan: Patient was treated with radiation for lung cancer and also had radiation to brain metastases; he has not followed up with his oncologist since prior to the COVID pandemic. Brain MRI in January 2023 showed a 10 mm enhancing mass in the medial right parietal lobe which was stable when compared to imaging from 04/23/2019 consistent with metastatic disease in addition to findings of radiation changes and/or vasogenic edema in the surrounding white matter. Patient does not wish for further treatment or follow-up. (8) Hypertension: Code(s): I10 - Essential (primary) hypertension Status: Acute Assessment and Plan: Blood pressures were reviewed. A few readings have been at the low end of normal while on Cardizem drip which has since been discontinued. Continue to monitor. (9) Aortic stenosis: Code(s): I35.0 - Nonrheumatic aortic (valve) stenosis Status: Acute Assessment and Plan: Moderate to severe aortic s
[2023-04-26] MEDS: TEMAZEPAM (*CRX) 15 MG CAPSULE 30 MG PO (21:02)
[2023-04-27] VITALS (15 sets, daily range): BP systolic 99–122; BP diastolic 39–58; PULSE 60–85; RESP 16–22; TEMP 36.4–36.8; O2SAT 96–100; BMI 16.3
[2023-04-27] MEDS: IPRATROPIUM BR 0.02% INH SOLN 0.5 MG/2.5 ML VIAL INHALATION ×2 (01:56→09:15)
[2023-04-27] MEDS: LEVALBUTEROL NEB 1.25 MG/3 ML INHALATION ×2 (01:57→09:15)
[2023-04-27] MEDS: DOXYCYCLINE 100 MG/NS 100 ML 100 MG/100 ML BAG IVPB (05:07)
[2023-04-27] MEDS: methylPREDNISolone SOD SUCC 125 MG VIAL 60 MG IV PUSH ×2 (05:07→12:03)
[2023-04-27] MEDS: AMIODARONE HCL 200 MG TABLET PO (08:19)
[2023-04-27] MEDS: APIXABAN 5 MG TABLET PO (08:20)
[2023-04-27] MEDS: levETIRAcetam 500 MG TABLET 1000 MG PO (08:20)
[2023-04-27] MEDS: METOPROLOL SUCCINATE EXT REL 25 MG TABCR PO (08:20)
[2023-04-27] MEDS: ROFLUMILAST 500 MCG TABLET PO (08:20)
[2023-04-27] MEDS: guaiFENesin 12 HR 600 MG TABCR PO (08:21)
[2023-04-27 08:45] LABS: Hematocrit 28.2 % (42.0-52.0); Hemoglobin 9.2 g/dL (14.0-18.0); Mean Corpuscular HGB Conc 32.6 g/dl (32-36); Mean Corpuscular Hemoglobin 29.6 pg (26-34); Mean Corpuscular Volume 90.7 fl (80-100); Mean Platelet Volume 10.7 fl (7.4-10.4); Platelet Count Result 316 k/mm3 (150-375); Red Blood Count 3.11 M/mm3 (4.6-6.20); Red Cell Distribution Width 14.6 % (11.5-14.5); White Blood Count 14.6 K/mm3 (4.5-10.0)
[2023-04-27 08:56] LABS: Anion Gap 2 mmol/L (8-16); Blood Urea Nitrogen 17 mg/dL (9-20); Calcium 8.6 mg/dL (8.4-10.2); Carbon Dioxide 34 mmol/L (22-30); Chloride 95 mmol/L (98-107); Estimated CRCL calculation 55 ml/min; Estimated Glomerular Filt Rate > 60; Glucose 118 mg/dL (65-110); Potassium 4.6 mmol/L (3.4-5.0); Sodium 131 mmol/L (137-145)
--- NOTE | 2023-04-27 09:43 | ECG_ITS ---
Measurements Intervals [place] Rate: 65 P: 68 PA: 158 QRS: 57 QRSD: 122 T: 48 QT: 405 QTc: 424 Interpretive Statements SINUS RHYTHM INFERIOR INFARCT, AGE INDETERMINATE BORDERLINE ST-T WAVE ABNORMALITY- ANTERIOR LEADS BASELINE ARTIFACT- V2-V3 ABNORMAL ECG COMPARED TO ECG 04/24/2023 15:45:19 NO SIGNIFICANT CHANGES Electronically Signed On 04-27-2023 10:30:58 CDT by Branden Alegria D.O.
[2023-04-27] MEDS: FLUTICASONE/UMECLIDIN/VILANTER 100-62.5-25 MCG ELLIPTA 1 PUFF INHALATION (11:59)
== END 2023-04-27 14:55 | disposition home health service (06) | DRG 189 ==
PROVIDERS: Physician Assistant; Admitting Provider Internal Medicine; PCP Family Medicine; Visit Provider Family Medicine
DX: J96.21 Acute and chronic respiratory failure with hypoxia (principal); J44.1 Chronic obstructive pulmonary disease with (acute) exacerbation; I48.92 Unspecified atrial flutter; C34.90 Malignant neoplasm of unspecified part of unspecified bronchus or lung; C79.31 Secondary malignant neoplasm of brain; I50.32 Chronic diastolic (congestive) heart failure; R64 Cachexia; Z68.1 Body mass index [BMI] 19.9 or less, adult; I35.0 Nonrheumatic aortic (valve) stenosis; B96.5 Pseudomonas (aeruginosa) (mallei) (pseudomallei) as the cause of diseases classified elsewhere; D72.829 Elevated white blood cell count, unspecified; I11.0 Hypertensive heart disease with heart failure; I48.0 Paroxysmal atrial fibrillation; Z99.81 Dependence on supplemental oxygen; I25.2 Old myocardial infarction; Z86.73 Personal history of transient ischemic attack (TIA), and cerebral infarction without residual deficits; Z87.891 Personal history of nicotine dependence; Z66 Do not resuscitate
CPT/HCPCS: 36415; 80048; 82803; 83735; 84439; 84443; 84480; 84484; 85027; 87070; 87077; 87186; 87205; 93005; 94002; 94640; 94667; 97161; 97165; 97530; A9270; J0696; J2930